=== PATIENT | female | born 1945 | race Caucasian/White ===

== ENCOUNTER 2016-11-15 14:11 | Emergency (ER) | payer MEDICARE ==
[2016-11-15] MEDS ORDERED: ASPIRIN 81 MG TABLET, CHEWABLE PO ONE (15:18)
--- NOTE | 2016-11-15 15:19 | ER Document Report ---
ED Medical Screen (RME) - General Stated Complaint: DIFFICULTY BREATHING Mode of Arrival: Ambulatory Information source: Patient Notes: Patient presents to the emergency department with complaints of chest pressure since Tuesday. She also reports shortness of breath. Denies nausea vomiting diarrhea. Does not have a history of cardiac disease. History of diabetes. I have greeted and performed a rapid initial assessment of this patient. A comprehensive ED assessment and evaluation of the patient, analysis of test results and completion of the medical decision making process will be conducted by additional ED providers. TRAVEL OUTSIDE OF THE [place] IN LAST 30 DAYS: No - Related Data Allergies/Adverse Reactions: adhesive Allergy (Severe, Verified 07/12/13 17:47) BURNING AND RASH codeine [Codeine] Allergy (Severe, Verified 07/12/13 17:47) Nausea Penicillins Allergy (Severe, Verified 07/12/13 17:47) rash Past Medical History - General Information source: Patient - Social History Lives with: Family Family history: CAD, CVA - Past Medical History Cardiac Medical History: Reports: Hx Hypercholesterolemia, Hx Hypertension Denies: Hx Atrial Fibrillation, Hx Congestive Heart Failure, Hx Coronary Artery Disease, Hx Heart Attack, Hx Peripheral Vascular Disease, Hx Pulmonary Embolism, Hx Heart Murmur Pulmonary Medical History: Reports: Hx Bronchitis, Hx COPD, Hx Sleep Apnea Denies: Hx Asthma, Hx Pneumonia, Hx Respiratory Failure, Hx Tuberculosis Neurological Medical History: Denies: Hx Cerebrovascular Accident, Hx Seizures Endocrine Medical History: Reports: Hx Diabetes Mellitus Type 2 - insulin dependent, Hx Hypothyroidism. Denies: Hx Graves' Disease, Hx Hyperthyroidism Renal/ Medical History: Denies: Hx Ovarian Cysts, Hx Pelvic Inflammatory Disease Malignancy Medical History: Reports: Hx Cervical Cancer, Hx Colorectal Cancer. Denies: Hx Breast Cancer, Hx Lung Cancer, Hx Ovarian Cancer GI Medical History: Reports: Hx Gastroesophageal Reflux Disease, Hx Liver Failure. Denies: Hx Crohn's Disease, Hx Hiatal Hernia, Hx Irritable Bowel, Hx Ulcer Musculoskeltal Medical History: Reports Hx Arthritis, Denies Hx Fibromyalgia, Denies Hx Muscular Dystrophy, Reports Hx Muscle Weakness - left leg Psychiatric Medical History: Reports: Hx Depression Traumatic Medical History: Reports: Hx Fractures Infectious Medical History: Denies: Hx MRSA Past Surgical History: Reports: Hx Appendectomy, Hx Bowel Surgery - COLONOSCOPY , COLON POLYP REMOVAL 08/01, Hx Cholecystectomy, Hx Hysterectomy, Hx Orthopedic Surgery - lt. hip replacement, hip surgery x 8 to left hip, Hx Tubal Ligation. Denies: Hx Section, Hx Colostomy, Hx Coronary Artery Bypass Graft, Hx Gastric Bypass Surgery, Hx Herniorrhaphy, Hx Mastectomy, Hx Pacemaker, Hx Tonsillectomy - Immunizations Immunizations up to date: Yes Hx Diphtheria, Pertussis, Tetanus Vaccination: No Physical Exam - Vital signs Vitals: Temp Pulse Resp BP Pulse Ox 97.3 F 68 18 125/66 95 11/15/16 14:19 11/15/16 14:19 11/15/16 14:19 11/15/16 14:19 11/15/16 14:19 Course - Vital Signs Vital signs: Temp Pulse Resp BP Pulse Ox 97.3 F 68 18 125/66 95 11/15/16 14:19 11/15/16 14:19 11/15/16 14:19 11/15/16 14:19 11/15/16 14:19
[2016-11-15 17:13] LABS: ABSOLUTE BASOPHILS # (AUTO) 0.1 10^3/uL (0.0-0.2); ABSOLUTE EOSINOPHILS # (AUTO) 0.2 10^3/uL (0.0-0.6); ABSOLUTE LYMPHOCYTES (AUTO) 3.9 10^3/uL (0.5-4.7); ABSOLUTE MONOCYTES (AUTO) 0.8 10^3/uL (0.1-1.4); ABSOLUTE NEUT (AUTO) 6.4 10^3/uL (1.7-8.2); BASOPHILS % (AUTO) 0.7 % (0-2); EOSINOPHILS % (AUTO) 1.7 % (0-6); HEMATOCRIT 42.2 % (36.0-47.0); HEMOGLOBIN 13.6 g/dL (12.0-15.5); HGB HCT DIFFERENCE -1.4; LYMPHOCYTES % (AUTO) 34.5 % (13-45); MEAN CORPUSCULAR HEMOGLOBIN 25.3 pg (27.0-33.4); MEAN CORPUSCULAR HGB CONC 32.2 g/dL (32.0-36.0); MEAN CORPUSCULAR VOLUME 79 fl (80-97); MONOCYTES % (AUTO) 6.9 % (3-13); RED BLOOD COUNT 5.36 10^6/uL (3.72-5.28); RED CELL DISTRIBUTION WIDTH 16.7 % (11.5-14.0); SEGMENTED NEUTROPHILS % (AUTO) 56.2 % (42-78); WHITE BLOOD COUNT 11.4 10^3/uL (4.0-10.5)
[2016-11-15 17:38] LABS: APPEARANCE,URINE CLEAR; BILIRUBIN,URINE NEGATIVE (NEGATIVE); GLUCOSE, URINE >=500 mg/dL (NEGATIVE); KETONES,URINE NEGATIVE (NEGATIVE); LEUKOCYTE ESTERASE,URINE NEGATIVE (NEGATIVE); NITRITE,URINE NEGATIVE (NEGATIVE); PROTEIN,URINE NEGATIVE (NEGATIVE); URINE SPECIFIC GRAVITY 1.006; UROBILINOGEN,URINE NEGATIVE mg/dL (<2.0)
[2016-11-15 17:39] LABS: ALANINE AMINOTRANSFERASE 27 U/L (9-52); ALBUMIN 4.2 g/dL (3.5-5.0); ALKALINE PHOSPHATASE 78 U/L (38-126); ANION GAP 14 (5-19); ASPARTATE AMINO TRANSFERASE 21 U/L (14-36); BILIRUBIN,DIRECT 0.3 mg/dL (0.0-0.4); BILIRUBIN,TOTAL 0.6 mg/dL (0.2-1.3); BLOOD UREA NITROGEN 20 mg/dL (7-20); CALCIUM 9.5 mg/dL (8.4-10.2); CARBON DIOXIDE 27 mmol/L (22-30); CHLORIDE 101 mmol/L (98-107); CREATINE KINASE 29 U/L (30-135); CREATININE RESULT 0.89 mg/dL (0.52-1.25); GLUCOSE 73 mg/dL (75-110); LIPASE 73.5 U/L (23-300); POTASSIUM 5.3 mmol/L (3.6-5.0); SODIUM 141.8 mmol/L (137-145); TOTAL PROTEIN 7.4 g/dL (6.3-8.2)
[2016-11-15 17:52] LABS: CREATINE KINASE MB < 0.22 ng/mL (<4.55); TROPONIN I < 0.012 ng/mL
--- NOTE | 2016-11-15 18:48 | ER Document Report ---
ED Cardiac - General Chief Complaint: Chest Pressure Stated Complaint: DIFFICULTY BREATHING Time seen by provider: 18:43 Mode of Arrival: Ambulatory Information source: Patient TRAVEL OUTSIDE OF THE [place] IN LAST 30 DAYS: No - HPI Patient complains to provider of: Chest pain, Chest tightness Was the onset of pain: Gradual Is the pain a: New problem Chest pain location: Substernal Quality of pain: Heaviness Severity now: Mild Severity at worst: Moderate Cardiac risk factors: Diabetes, Dyslipidemia Positive cardiac history: No Associated symptoms: None Exacerbated by: Denies Relieved by: Nothing Similar symptoms previously: No Recently seen / treated by doctor: No Notes: Patient is a 70-year-old female with a history of diabetes, COPD, hyperlipidemia , and cervical on colorectal cancer in the past, who presents to the emergency room complaining of chest pressure that been going on for the past 4 days, she reports a heaviness, with shortness of breath but no diaphoresis, states it feels like there is a heavy book sitting on her chest, she reports a mild nonproductive cough, denies a fever, no headache, lightheadedness or dizziness, no nausea, vomiting or diarrhea, no history of similar symptoms previously - Related Data Allergies/Adverse Reactions: adhesive Allergy (Severe, Verified 07/12/13 17:47) BURNING AND RASH codeine [Codeine] Allergy (Severe, Verified 07/12/13 17:47) Nausea Penicillins Allergy (Severe, Verified 07/12/13 17:47) rash Past Medical History - General Information source: Patient - Social History Smoking Status: Former Smoker Frequency of alcohol use: None Drug Abuse: None Lives with: Family Family History: CVA, Hypertension Patient has suicidal ideation: No Patient has homicidal ideation: No - Past Medical History Cardiac Medical History: Reports: Hx Hypercholesterolemia, Hx Hypertension Denies: Hx Atrial Fibrillation, Hx Congestive Heart Failure, Hx Coronary Artery Disease, Hx Heart Attack, Hx Peripheral Vascular Disease, Hx Pulmonary Embolism, Hx Heart Murmur Pulmonary Medical History: Reports: Hx Bronchitis, Hx COPD, Hx Sleep Apnea Denies: Hx Asthma, Hx Pneumonia, Hx Respiratory Failure, Hx Tuberculosis Neurological Medical History: Denies: Hx Cerebrovascular Accident, Hx Seizures Endocrine Medical History: Reports: Hx Diabetes Mellitus Type 2 - insulin dependent, Hx Hypothyroidism. Denies: Hx Graves' Disease, Hx Hyperthyroidism Renal/ Medical History: Denies: Hx Ovarian Cysts, Hx Peritoneal Dialysis, Hx Pelvic Inflammatory Disease Malignancy Medical History: Reports: Hx Cervical Cancer, Hx Colorectal Cancer. Denies: Hx Breast Cancer, Hx Lung Cancer, Hx Ovarian Cancer GI Medical History: Reports: Hx Gastroesophageal Reflux Disease, Hx Liver Failure. Denies: Hx Crohn's Disease, Hx Hiatal Hernia, Hx Irritable Bowel, Hx Ulcer Musculoskeltal Medical History: Reports Hx Arthritis, Denies Hx Fibromyalgia, Denies Hx Muscular Dystrophy, Reports Hx Muscle Weakness - left leg Psychiatric Medical History: Reports: Hx Depression Traumatic Medical History: Reports: Hx Fractures Infectious Medical History: Denies: Hx MRSA Past Surgical History: Reports: Hx Appendectomy, Hx Bowel Surgery - COLONOSCOPY , COLON POLYP REMOVAL 08/01, Hx Cholecystectomy, Hx Hysterectomy, Hx Orthopedic Surgery - lt. hip replacement, hip surgery x 8 to left hip, Hx Tubal Ligation. Denies: Hx Section, Hx Colostomy, Hx Coronary Artery Bypass Graft, Hx Gastric Bypass Surgery, Hx Herniorrhaphy, Hx Mastectomy, Hx Pacemaker, Hx Tonsillectomy - Immunizations Immunizations up to date: Yes Hx Diphtheria, Pertussis, Tetanus Vaccination: No Hx Pneumococcal Vaccination: 05/22/12 Review of Systems - Review of Systems Constitutional: No symptoms reported EENT: No symptoms reported Cardiovascular: See HPI Respiratory: See HPI Gastrointestinal: No symptoms reported Genitourinary: No symptoms reported Female Genitourinary: No symptoms reported Musculoskeletal: No symptoms reported Skin: No symptoms reported Hematologic/Lymphatic: No symptoms reported Neurological/Psychological: No symptoms reported -: Yes All other systems reviewed and negative Physical Exam - Vital signs Vitals: Temp Pulse Resp BP Pulse Ox 97.3 F 68 18 125/66 95 11/15/16 14:19 11/15/16 14:19 11/15/16 14:19 11/15/16 14:19 11/15/16 14:19 Interpretation: Normal - General General appearance: Appears well, Alert - HEENT Head: Normocephalic, Atraumatic Eyes: Normal Pupils: PERRL - Respiratory Respiratory status: No respiratory distress Chest status: Nontender Breath sounds: Normal Chest palpation: Normal - Cardiovascular Rhythm: Regular Heart sounds: Normal auscultation Murmur: No - Abdominal Inspection: Normal Distension: No distension Bowel sounds: Normal Tenderness: Nontender Organomegaly: No organomegaly - Back Back: Normal, Nontender - Extremities General upper extremity: Normal inspection, Nontender, Normal color, Normal ROM , Normal temperature General lower extremity: Normal inspection, Nontender, Normal color, Normal ROM , Normal temperature. No: Jose Cruz's sign - Neurological Neuro grossly intact: Yes Cognition: Normal Orientation: AAOx4 Anna Coma Scale Eye Opening: Spontaneous Anna Coma Scale Verbal: Oriented Anna Coma Scale Motor: Obeys Commands Mchenry Coma Scale Total: 15 Speech: Normal Motor strength normal: LUE, RUE, LLE, RLE Sensory: Normal - Psychological Associated symptoms: Normal affect, Normal mood - Skin Skin Temperature: Warm Skin Moisture: Dry Skin Color: Normal Course - Re-evaluation Re-evalutation: 11/15/16 19:55 Lab and imaging findings were discussed with patient and spouse at bedside, CT is consistent with a 2.2 cm mass in the anterior lingula, patient was given a copy of this report, she was advised to follow-up with an oncologist within the next week, as well as her primary care provider or return if symptoms worsen, patient acknowledges understanding and agreement with this plan - Vital Signs Vital signs: Temp Pulse Resp BP Pulse Ox 97.3 F 68 18 125/66 95 11/15/16 14:19 11/15/16 14:19 11/15/16 14:19 11/15/16 14:19 11/15/16 14:19 - Laboratory Result Diagrams: 11/15/16 17:01 11/15/16 17:01 Laboratory results interpreted by me: 11/15/16 11/15/16 11/15/16 17:01 17:01 17:01 WBC 11.4 H RBC 5.36 H MCV 79 L MCH 25.3 L RDW 16.7 H Potassium 5.3 H Glucose 73 L Creatine Kinase 29 L Urine Glucose (UA) >=500 H - Diagnostic Test Radiology reviewed: Image reviewed, Reports reviewed - EKG Interpretation by Me EKG shows normal: Sinus rhythm Rate: Normal Rhythm: NSR Discharge - Discharge Clinical Impression: Mass of lingula of lung Condition: Stable Disposition: HOME, SELF-CARE Instructions: Growth or Mass, Pending Workup (OM) Additional Instructions: Follow up with your primary care provider and oncologist within the next week. Return to the emergency room immediately if symptoms worsen or any additional concerns. Referrals: HENRRY RODRIGUEZ MD [Primary Care Provider] - Follow up as needed NIDA HERNANDEZ MD [ACTIVE STAFF] - Follow up as needed
[2016-11-15 19:58] VITALS: BP 124/59
--- NOTE | 2016-11-16 00:15 | EKG REPORT ---
SEVERITY:- BORDERLINE ECG - SINUS RHYTHM LEFT AXIS DEVIATION BORDERLINE T ABNORMALITIES, ANTERIOR LEADS : Confirmed by: Kathie Alva 16-Nov-2016 00:14:38
== END 2016-11-15 20:06 | disposition home or self-care (01) ==
LOC: ER 14:11
DX: R91.8 Other nonspecific abnormal finding of lung field (principal); R07.9 Chest pain, unspecified; R05 Cough; E11.9 Type 2 diabetes mellitus without complications; J44.9 Chronic obstructive pulmonary disease, unspecified; E78.5 Hyperlipidemia, unspecified; I10 Essential (primary) hypertension; Z85.41 Personal history of malignant neoplasm of cervix uteri; Z85.038 Personal history of other malignant neoplasm of large intestine; Z88.6 Allergy status to analgesic agent; Z88.0 Allergy status to penicillin; Z79.4 Long term (current) use of insulin; Z90.49 Acquired absence of other specified parts of digestive tract; Z90.710 Acquired absence of both cervix and uterus
CPT/HCPCS: 93005; 99285; 36415; 82553; 82550; 83690; 85025; 80053; 81001; 84484; 71020; 71275; 93010; A9270

== ENCOUNTER → 2016-11-28 | Outpatient (CLI) | payer MEDICARE | LOC: RAD 15:22 | PROVIDERS: ATTEND Specialist | DX: R91.1 Solitary pulmonary nodule (principal) | CPT/HCPCS: 78815; A9552 ==

== ENCOUNTER 2016-12-15 08:38 | Day surgery (SDC) | payer MEDICARE ==
[2016-12-15 10:00] LABS: HEMATOCRIT 39.8 % (36.0-47.0); HEMOGLOBIN 12.8 g/dL (12.0-15.5); HGB HCT DIFFERENCE -1.4; MEAN CORPUSCULAR HEMOGLOBIN 24.9 pg (27.0-33.4); MEAN CORPUSCULAR HGB CONC 32.1 g/dL (32.0-36.0); MEAN CORPUSCULAR VOLUME 78 fl (80-97); RED BLOOD COUNT 5.13 10^6/uL (3.72-5.28); RED CELL DISTRIBUTION WIDTH 15.8 % (11.5-14.0); WHITE BLOOD COUNT 7.1 10^3/uL (4.0-10.5)
[2016-12-15 10:05] LABS: PARTIAL THROMBOPLASTIN TIME 28.7 SEC (23.5-35.8); PROTHROMBIN TIME 13.5 SEC (11.4-15.4)
[2016-12-15 10:16] LABS: BLOOD UREA NITROGEN 23 mg/dL (7-20); CREATININE RESULT 0.91 mg/dL (0.52-1.25); GLUCOSE 126 mg/dL (75-110)
[2016-12-15] MEDS ORDERED: MIDAZOLAM 2 MG/2 ML INJ ONE (11:02)
[2016-12-15] MEDS ORDERED: FENTANYL CITRATE INJ/PF 100 MCG/2 ML AMPUL ONE (11:03)
[2016-12-15] MEDS ORDERED: OXYCODONE HCL IR 5 MG TABLET ONE (12:41)
[2016-12-15 15:54] VITALS: BP 130/61
== END 2016-12-15 15:17 | disposition home or self-care (01) ==
LOC: RAD 08:38
PROVIDERS: ATTEND Internal Medicine
PROC: 0BBL3ZX Excision of Left Lung, Percutaneous Approach, Diagnostic (ICD-10-PCS; principal; 2016-12-15)
DX: C34.2 Malignant neoplasm of middle lobe, bronchus or lung (principal); Z79.01 Long term (current) use of anticoagulants; Z79.899 Other long term (current) drug therapy; Z88.5 Allergy status to narcotic agent; Z88.0 Allergy status to penicillin
CPT/HCPCS: 36415; 84520; 82565; 82947; 85027; 85610; 85730; 88342 ×2; 88341 ×2; 88305 ×2; 88313 ×2; 71010; 32405; J2250; J3010; A9270

== ENCOUNTER → 2016-12-28 | Outpatient (CLI) | payer MEDICARE | LOC: RAD 15:30 | PROVIDERS: ATTEND Internal Medicine | DX: R51 Headache (principal) | CPT/HCPCS: 70553; A9577 ==

== ENCOUNTER 2017-03-23 08:20 | Day surgery (SDC) | payer MEDICARE ==
[2017-03-23 08:59] LABS: HEMATOCRIT 31.6 % (36.0-47.0); HGB HCT DIFFERENCE -1.6; MEAN CORPUSCULAR HGB CONC 31.7 g/dL (32.0-36.0); MEAN CORPUSCULAR VOLUME 73 fl (80-97); RED BLOOD COUNT 4.36 10^6/uL (3.72-5.28); RED CELL DISTRIBUTION WIDTH 16.8 % (11.5-14.0); WHITE BLOOD COUNT 6.9 10^3/uL (4.0-10.5)
[2017-03-23] MEDS ORDERED: PROPOFOL INJ 200 MG/20 ML VIAL IV ONE (11:51)
[2017-03-23] MEDS ORDERED: FENTANYL CITRATE INJ/PF 100 MCG/2 ML AMPUL ONE (11:51)
[2017-03-23] MEDS ORDERED: MIDAZOLAM 2 MG/2 ML INJ ONE (11:51)
[2017-03-23] MEDS ORDERED: LIDOCAINE 0.5%/EPINEPHRINE INJ 50 ML VIAL ONE (11:59)
[2017-03-23] MEDS ORDERED: CIPROFLOXACIN 400 MG/D5W RTU 400 MG/200 ML RTUPB IV ONE (12:08)
[2017-03-23] MEDS ORDERED: FENTANYL CITRATE INJ/PF 100 MCG/2 ML AMPUL IV PRN ×3 (12:45)
[2017-03-23] MEDS ORDERED: DIPHENHYDRAMINE HCL 50 MG/ML VIAL IV PRN (12:45)
--- NOTE | 2017-03-23 12:53 | Operative Report ---
Operative Report DATE OF SURGERY: 03/23/17 PREOPERATIVE DIAGNOSIS: Left lung carcinoma POSTOPERATIVE DIAGNOSIS: Same OPERATION: 1. Focused ultrasound of the right neck. 2.ultrasound directed insertion of single-lumen [id number] catheter. . Interpretation of intraoperative fluoroscopy SURGEON: REYNOLD ALEXANDER 1ST [employer]CORN ATTENDANT: INGRIS LE ANESTHESIA: LMAC TISSUE REMOVED OR ALTERED: None COMPLICATIONS: None ESTIMATED BLOOD LOSS: Scant INTRAOPERATIVE FINDINGS: See below PROCEDURE: Patient was seen in the preop holding area, right neck marked, taken the operating room where LMAC anesthesia was induced. Arms were tucked at her sides. The right neck and chest wall prepped and draped in sterile fashion. Surgical plan and surgical timeout. The right neck was scanned with a variable frequency linear transducer. The right internal jugular vein was felt suitable for cannulation. Skin was any stopped 1% lidocaine plain. Using micro needle and wire, the wire was threaded into the right internal jugular vein without difficulty. Suitable site for placement of the right subclavian port was chosen. Skin was any stopped 1% lidocaine plain. A 3 cm incision was made over the intended for port placement. The underlying subcutaneous tissue was opened with electrocautery and blunt dissection. The port was then tucked into position, catheter tunneled between the 2 wounds trimmed to the appropriate length, and attached to the port with the plastic ring. The micro needle was then threaded over a small introducer sheath to a conventional 0.030 inch wire. We now threaded on top of the conventional wire, a 8 Urdu dilator introducer sheath. Wire and dilator removed, catheter threaded into the internal jugular vein all under fluoroscopic guidance and away sheath removed leaving the catheter in good position. There is no kinking of the catheter at the neck. There was no evidence of ectopy. There was excellent aspiration of blood flow through the catheter. Catheter was flushed with heparinized saline, dilute, hemostasis achieved, and wounds closed with 3- 0 Vicryl benzoin and Steri-Strips Portable upright chest x-ray pending at time of dictation. Patient tolerated the procedure well , recovery in stable condition. The physician orthodontic technician assistant, Ms. Antonio, provided assistance during this case by: Assisting , retracting tissue, instillation of local anesthesia and closure of skin incisions.
--- NOTE | 2017-03-23 12:55 | PDOC DISCHARGE SUMMARY ---
Discharge Summary (SDC) - Discharge Final Diagnosis: Lung carcinoma Date of Surgery: 03/23/17 Discharge Date: 03/23/17 Condition: Good Treatment or Instructions: [facility] [address] [place] [id number] Discharge Instructions: Neck Surgery 1. General Information: a. Do not drive a car or operate machinery for 1-2 weeks or as long as taking narcotics for pain. b. Do not consume alcohol, tranquilizers, sleeping medications or any non- prescribed medications for 24 hours unless approved by your doctor or as long as taking pain medication. c. Do not make important decisions or sign any important papers for the first 24 hours after surgery. d. When discharged home the same day of surgery have a responsible person with you for the first night. 2. Activity Restrictions: 2 weeks. a. Avoid heavy lifting > 10 lbs, straining, sports, mowing lawn, shoveling snow, vacuum cleaning and bending over a lot. Limit bending to taking a shower and getting dressed. Sleep with head elevated (2 pillows). b. Walking is important to avoid blood clots in the legs and deep breathing can prevent pneumonia. c. It is fine to go up and down steps, ride in a car, and use a stationary bike with low resistance. 3. Treatment: a. The dressing can be removed the day after surgery and to shower then daily is fine, but you should not bathe in the tub or go swimming for 2 weeks. The paper strips (steri-strips) on the skin will fall off and can get wet with a shower, just pat them dry. The sutures dissolve and the strips will be removed in the office on your follow up visit if they have not fallen off by then. May shower 24 hours after surgery; if your incision was glued you may wash your neck and expect glue to fall off in about 2 weeks. b. Do not use oils, powders or lotion on your incision until after the first postoperative visit. Then you may begin to apply daily to the incision a cream of your choice (Vitamin E, cocoa butter, scar creams) to help soften the scar. c. If you are fair skinned it would be ford to use sunscreen on the scar for the first 6 months or keep it covered to avoid tanning pigment deposits being trapped in the scar creating a dark line instead of a pink scar. 4. Medications: a. b. Stop the narcotic when able since you cannot take and drive and they may cause constipation. You may switch to plain Tylenol, Advil or Aleve as you transition from the narcotic. Many adults find good pain relief with Ibuprofen 600-800 mg three times a day with meals to work well to avoid narcotic use. High doses of Ibuprofen should only be used for short courses since it can cause indigestion, ulcer bleeding in the stomach and harm kidney function. c. You should resume all normal medications unless a change is specified by your doctors. d. a. If going home same day of surgery you should begin with clear liquids and if do well then advance to a normal diet with foods low in fat and protein. Small portion sizes may be ford the first night to lessen risk of vomiting. b. When discharged after a hospital stay you may resume a normal diet. 6. Notify Physician If: a. Worsening of pain or swelling in neck, persistent bleeding at the operative site, nausea and vomiting, fever above 101, unable to urinate and bladder pressure after 8-12 hours, increased redness, drainage, or foul smelling discharge from the incision. b. If you have difficulty breathing or chest pain, call an ambulance and/or go to the Emergency Room. 7. Follow Up Care: a. Schedule a follow up appointment with your doctor for 2 weeks. In the event of any postoperative problems or questions or you may call the office during business hours or the On-Call physician evenings and weekends at [facility]. [facility] 8. I understand the instructions for my postoperative care as described above and a copy has been given to me. Patient/Significant Other Witness Date Prescriptions: Ketorolac Tromethamine [Toradol 10 mg Tablet] 10 mg PO Q6HP PRN #14 tablet PRN Reason: Discharge Diet: As Tolerated Discharge Activity: Activity As Tolerated Home Care Assistance: None Needed Report the Following to Your Physician Immediately: Shortness of Breath, Increase in Pain, Fever over 101 Degrees
--- NOTE | 2017-03-23 13:43 | RADIOLOGY REPORT (SQ) ---
EXAM DESCRIPTION: CHEST SINGLE VIEW COMPLETED DATE/TIME: 03/23/2017 1:28 pm REASON FOR STUDY: sp port COMPARISON: None. EXAM PARAMETERS: NUMBER OF VIEWS: One view. TECHNIQUE: Single frontal radiographic view of the chest acquired. RADIATION DOSE: NA LIMITATIONS: None. FINDINGS: LUNGS AND PLEURA: No opacities, masses or pneumothorax. No pleural effusion. MEDIASTINUM AND HILAR STRUCTURES: No masses. Contour normal. HEART AND VASCULAR STRUCTURES: Cardiomegaly. BONES: No acute findings. HARDWARE: Right IJ port noted. Significant redundancy seen within the looped in the neck crescent po ssible occlusion of catheter is appears to be change due did state PACs. Catheter tip is noted to be in the mid SVC. Surgical clips project over the left chest. OTHER: No other significant finding. IMPRESSION: Cardiomegaly. Right IJ port noted. There appears to be a significant band at the apex of the catheter question possible occlusion of the catheter. Tip noted in the in the mid SVC. TECHNICAL DOCUMENTATION: JOB ID: [id number]
--- NOTE | 2017-03-23 13:45 | RADIOLOGY REPORT (SQ) ---
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 FLUOROSCOPY TIME: 0 minutes 4 images saved to PACS. TECHNIQUE: Intra-operative images acquired during surgical procedure to evaluate progress. NUMBER OF IMAGES: 4 spot fluoroscopic images LIMITATIONS: None. FINDINGS: 4 spot fluoroscopic images from placement of right IJ ported catheter. Right chest port n oted with catheter entering right IJ with the tip in the mid SVC. Please see operative report full d etails regarding procedure. IMPRESSION: IMAGE(S) OBTAINED DURING PROCEDURE. COMMENT: Quality ID [id number]: Final reports for procedures using fluoroscopy that document radiation exp osure indices, or exposure time and number of fluorographic images (if radiation exposure indices are not available) Please consult full operative report of the attending physician for description of the procedure. TECHNICAL DOCUMENTATION: JOB ID: [id number] [employer]- All Rights Reserved
[2017-03-23] MEDS ORDERED: ONDANSETRON HCL INJ/PF 4 MG/2 ML SDV ONE (14:22)
[2017-03-23 15:05] VITALS: BP 120/49
== END 2017-03-23 14:35 | disposition home or self-care (01) ==
LOC: OROUT 08:20
PROVIDERS: ATTEND Surgery
PROC: 05HM33Z Insertion of Infusion Device into Right Internal Jugular Vein, Percutaneous Approach (ICD-10-PCS; principal; 2017-03-23 11:15)
DX: C34.92 Malignant neoplasm of unspecified part of left bronchus or lung (principal); C34.12 Malignant neoplasm of upper lobe, left bronchus or lung; R91.1 Solitary pulmonary nodule; E11.9 Type 2 diabetes mellitus without complications; J43.9 Emphysema, unspecified; K21.9 Gastro-esophageal reflux disease without esophagitis; E78.00 Pure hypercholesterolemia, unspecified; E89.0 Postprocedural hypothyroidism; Z96.642 Presence of left artificial hip joint; Z88.0 Allergy status to penicillin; Z85.850 Personal history of malignant neoplasm of thyroid; Z85.41 Personal history of malignant neoplasm of cervix uteri; Z79.899 Other long term (current) drug therapy; Z79.84 Long term (current) use of oral hypoglycemic drugs; Z79.51 Long term (current) use of inhaled steroids; Z88.5 Allergy status to narcotic agent; Z90.49 Acquired absence of other specified parts of digestive tract; Z87.891 Personal history of nicotine dependence
CPT/HCPCS: 36415; 82962; 85027; 71010; 77001; 36561; C1752; C1788; J2250; J3010; J3490; J2405; J2704; J0744; J1642; 532

== ENCOUNTER 2017-05-21 19:09 | Inpatient (IN) | payer MEDICARE ==
[2017-05-21] MEDS ORDERED: RINGERS SOLUTION,LACTATED 1,000 ML IV ONE ×2 (19:41→22:51)
[2017-05-21] MEDS ORDERED: METOCLOPRAMIDE HCL INJ/PF 10 MG/2 ML SDV IV ONE (19:41)
--- NOTE | 2017-05-21 19:43 | ER Document Report ---
ED General - General Stated Complaint: NAUSEA/VOMITTING Time Seen by Provider: 05/21/17 19:18 Notes: Patient is a 71-year-old female with a past medical history of lung cancer status post lobectomy on the left, currently on chemotherapy last dose was 2 weeks ago who presents with 2 weeks of persistent vomiting and inability to tolerate oral intake. Patient states that her symptoms started after receiving her last dose of chemotherapy but have been persistent since that time. She has seen her oncologist as an outpatient on 3 separate occasions this week to receive IV fluids and IV antiemetics for her symptoms. She states that this typically improves her symptoms for several hours after administration of these medications but then her symptoms return. She has been unable to tolerate oral fluids for the past 3 days without vomiting. She has had similar episodes with receiving chemotherapy in the past but they have never lasted for this long or been to this degree of severity. She notes an intermittent abdominal cramping typically around times of vomiting but denies any abdominal pain at this time. She has not noted that anything seems to trigger or worsen her symptoms. She has not had any fever or constitutional symptoms. She has had several diarrheal bowel movements but knows she has not had a bowel movement in the past 24 hours. TRAVEL OUTSIDE OF THE [place] IN LAST 30 DAYS: No - Related Data Allergies/Adverse Reactions: adhesive Allergy (Severe, Verified 12/15/16 09:31) BURNING AND RASH codeine [Codeine] Allergy (Severe, Verified 12/15/16 09:31) Nausea Penicillins Allergy (Severe, Verified 12/15/16 09:31) rash metal Allergy (Uncoded 12/14/16 18:47) skin peels Past Medical History - General Information source: Patient - Social History Smoking Status: Former Smoker Frequency of alcohol use: None Drug Abuse: None Lives with: Spouse/Significant other Family History: CVA, Hypertension - Past Medical History Cardiac Medical History: Reports: Hx Hypercholesterolemia, Hx Hypertension - states "doesn't have high BP, on meds because of diabetes" Denies: Hx Atrial Fibrillation, Hx Congestive Heart Failure, Hx Coronary Artery Disease, Hx Heart Attack, Hx Peripheral Vascular Disease, Hx Pulmonary Embolism, Hx Heart Murmur Pulmonary Medical History: Reports: Hx Bronchitis, Hx COPD, Hx Sleep Apnea Denies: Hx Asthma, Hx Pneumonia, Hx Respiratory Failure, Hx Tuberculosis Neurological Medical History: Denies: Hx Cerebrovascular Accident, Hx Seizures Endocrine Medical History: Reports: Hx Diabetes Mellitus Type 2 - insulin dependent, Hx Hypothyroidism. Denies: Hx Graves' Disease, Hx Hyperthyroidism Renal/ Medical History: Denies: Hx Ovarian Cysts, Hx Peritoneal Dialysis, Hx Pelvic Inflammatory Disease Malignancy Medical History: Reports: Hx Cervical Cancer, Hx Colorectal Cancer. Denies: Hx Breast Cancer, Hx Lung Cancer, Hx Ovarian Cancer GI Medical History: Reports: Hx Gastroesophageal Reflux Disease, Hx Liver Failure. Denies: Hx Crohn's Disease, Hx Hiatal Hernia, Hx Irritable Bowel, Hx Ulcer Musculoskeltal Medical History: Reports Hx Arthritis, Denies Hx Fibromyalgia, Denies Hx Muscular Dystrophy, Reports Hx Muscle Weakness - left leg Psychiatric Medical History: Reports: Hx Depression Traumatic Medical History: Reports: Hx Fractures Infectious Medical History: Denies: Hx MRSA Past Surgical History: Reports: Hx Appendectomy, Hx Bowel Surgery - COLONOSCOPY , COLON POLYP REMOVAL 08/01, Hx Cholecystectomy, Hx Hysterectomy, Hx Orthopedic Surgery - lt. hip replacement, hip surgery x 8 to left hip, Hx Tubal Ligation. Denies: Hx Section, Hx Colostomy, Hx Coronary Artery Bypass Graft, Hx Gastric Bypass Surgery, Hx Herniorrhaphy, Hx Mastectomy, Hx Pacemaker, Hx Tonsillectomy - Immunizations Immunizations up to date: Yes Hx Diphtheria, Pertussis, Tetanus Vaccination: Yes Hx Pneumococcal Vaccination: 05/22/15 Review of Systems - Review of Systems Notes: Constitutional: Negative for fever. HENT: Negative for sore throat. Eyes: Negative for visual changes. Cardiovascular: Negative for chest pain. Respiratory: Negative for shortness of breath. Gastrointestinal: Positive for vomiting Genitourinary: Negative for dysuria. Musculoskeletal: Negative for back pain. Skin: Negative for rash. Neurological: Negative for headaches, weakness or numbness. 10 point ROS negative except as marked above and in HPI. Physical Exam - Vital signs Vitals: Temp Pulse Resp BP Pulse Ox 98.2 F 77 16 124/53 L 98 05/21/17 19:18 05/21/17 19:18 05/21/17 19:18 05/21/17 19:18 05/21/17 19:18 Interpretation: Normal Notes: PHYSICAL EXAMINATION: GENERAL: Well-appearing, well-nourished and in no acute distress. HEAD: Atraumatic, normocephalic. EYES: Pupils equal round and reactive to light, extraocular movements intact, sclera anicteric, conjunctiva are normal. ENT: nares patent, oropharynx clear without exudates. Moderately dry mucous membranes. NECK: Normal range of motion, supple without lymphadenopathy LUNGS: Breath sounds clear to auscultation bilaterally and equal. No wheezes rales or rhonchi. HEART: Regular rate and rhythm without murmurs ABDOMEN: Soft, nontender, normoactive bowel sounds. No guarding, no rebound. No masses appreciated. EXTREMITIES: Normal range of motion, no pitting or edema. No cyanosis. NEUROLOGICAL: No focal neurological deficits. Moves all extremities spontaneously and on command. PSYCH: Normal mood, normal affect. SKIN: Warm, Dry, normal turgor, no rashes or lesions noted. Course - Re-evaluation Re-evalutation: 05/21/17 19:41 Patient presents with 2 weeks of persistent vomiting and difficulty tolerating oral intake after receiving chemotherapy. She has been seen by her oncologist and had IV fluid infusions this week but states that her vomiting got to the point tonight where she felt she should be seen in the emergency department. On examination patient is cheerful, laughing and joking with me. She appears in no distress. Does seem somewhat dehydrated. Vitals are otherwise within normal limits at assessment time. She does not have any focal abdominal tenderness on examination. She has a remote history of a cholecystectomy. She has no focal epigastric abdominal tenderness to suggest an acute pancreatitis. No lower abdominal tenderness to suggest an acute appendicitis. Will obtain a KUB to further evaluate for possible bowel obstruction for which I have an overall low clinical suspicion. She denies any chest pain or shortness of breath to suggest an atypical presentation of ACS. Will obtain basic labs, provide antiemetics, IV fluids and reassess. 05/21/17 22:51 CT scan was obtained after KUB demonstrated findings concerning for possible bowel obstruction. CT does reveal findings consistent with an acute ileus and this is consistent with patient's clinical history. Patient does overall feel better at this time and has not had any further vomiting. However she states that this is frequently the case after she receives IV fluids and antiemetics as she has in the clinic. I think based on patient's failure of outpatient management even using extensive resources as an outpatient including multiple visits to the [facility]mo-clinic, she should be admitted to the hospital for IV fluids , IV antiemetics, gradual return to normal diet. Will contact Dr. Deleon for admission. - Vital Signs Vital signs: Temp Pulse Resp BP Pulse Ox 98.6 F 73 17 138/49 H 100 05/22/17 01:52 05/22/17 02:40 05/22/17 01:52 05/22/17 01:52 05/22/17 01:52 - Laboratory Result Diagrams: 05/21/17 21:25 05/21/17 20:10 Laboratory results interpreted by me: 05/21/17 05/21/17 20:10 21:25 Hgb 9.8 L Hct 29.6 L MCV 76 L MCH 25.2 L RDW 28.6 H Plt Count 82 L Potassium 3.5 L Est GFR (Non-Af Amer) 56 L Glucose 128 H Calcium 7.9 L - Diagnostic Test Radiology reviewed: Reports reviewed Discharge - Discharge Clinical Impression: Ileus, Persistent vomiting, Dehydration Condition: Fair Disposition: ADMITTED OBSERVATION Admitting Provider: Flako Deleon Unit Admitted: Telemetry
[2017-05-21 20:36] LABS: ALANINE AMINOTRANSFERASE 32 U/L (9-52); ALBUMIN 3.9 g/dL (3.5-5.0); ALKALINE PHOSPHATASE 99 U/L (38-126); ANION GAP 10 (5-19); ASPARTATE AMINO TRANSFERASE 24 U/L (14-36); BILIRUBIN,DIRECT 0.4 mg/dL (0.0-0.4); BILIRUBIN,TOTAL 0.8 mg/dL (0.2-1.3); BLOOD UREA NITROGEN 14 mg/dL (7-20); CALCIUM 7.9 mg/dL (8.4-10.2); CARBON DIOXIDE 30 mmol/L (22-30); CHLORIDE 102 mmol/L (98-107); CREATININE RESULT 0.99 mg/dL (0.52-1.25); GLUCOSE 128 mg/dL (75-110); POTASSIUM 3.5 mmol/L (3.6-5.0); SODIUM 141.7 mmol/L (137-145)
--- NOTE | 2017-05-21 20:56 | RADIOLOGY REPORT (SQ) ---
EXAM DESCRIPTION: KUB/ABDOMEN (SINGLE VIEW) COMPLETED DATE/TIME: 05/21/2017 8:32 pm REASON FOR STUDY: vomiting, eval obstruction COMPARISON: 09/20/2011 NUMBER OF VIEWS: One view. TECHNIQUE: Supine radiographic image of the abdomen acquired. LIMITATIONS: None. FINDINGS: BOWEL GAS PATTERN: Multiple air-filled loops of small bowel are seen, measuring up to 5 cm . Gas is seen distally to the level of the rectal vault. CALCIFICATIONS: No suspicious calcifications. SOFT TISSUES: No gross mass or suggestion of organomegaly. HARDWARE: Scattered surgical clips are seen throughout the right surekha abdomen. BONES: Postsurgical changes are seen of the left hip, partially imaged. OTHER: No other significant finding. IMPRESSION: Constellation of findings consistent with developing small bowel obstruction. TECHNICAL DOCUMENTATION: JOB ID: [id number] [employer]- All Rights Reserved
[2017-05-21 21:48] LABS: ABSOLUTE EOSINOPHILS # (AUTO) 0.1 10^3/uL (0.0-0.6); ABSOLUTE LYMPHOCYTES (AUTO) 1.8 10^3/uL (0.5-4.7); ABSOLUTE MONOCYTES (AUTO) 0.5 10^3/uL (0.1-1.4); ABSOLUTE NEUT (AUTO) 4.5 10^3/uL (1.7-8.2); BASOPHILS % (AUTO) 0.3 % (0-2); EOSINOPHILS % (AUTO) 1.2 % (0-6); HEMATOCRIT 29.6 % (36.0-47.0); HEMOGLOBIN 9.8 g/dL (12.0-15.5); HGB HCT DIFFERENCE -0.2; LYMPHOCYTES % (AUTO) 25.7 % (13-45); MEAN CORPUSCULAR HEMOGLOBIN 25.2 pg (27.0-33.4); MEAN CORPUSCULAR VOLUME 76 fl (80-97); MONOCYTES % (AUTO) 7.6 % (3-13); RED BLOOD COUNT 3.88 10^6/uL (3.72-5.28); RED CELL DISTRIBUTION WIDTH 28.6 % (11.5-14.0); SEGMENTED NEUTROPHILS % (AUTO) 65.2 % (42-78); WHITE BLOOD COUNT 6.9 10^3/uL (4.0-10.5)
[2017-05-21 21:53] LABS: MICROCYTOSIS SLIGHT
[2017-05-21 21:58] LABS: ANISOCYTOSIS 4+
[2017-05-21 21:59] LABS: HYPOCHROMASIA SLIGHT; OVALOCYTES SLIGHT; POIKILOCYTOSIS SLIGHT; POLYCHROMASIA SLIGHT; TEAR DROP CELLS SLIGHT
[2017-05-21 22:01] LABS: TOXIC GRANULATION 1+
--- NOTE | 2017-05-21 22:28 | RADIOLOGY REPORT (SQ) ---
EXAM DESCRIPTION: CT ABD/PELVIS WITH IV ONLY COMPLETED DATE/TIME: 05/21/2017 10:06 pm REASON FOR STUDY: poss sbo COMPARISON: Radiographs 05/21/2017 TECHNIQUE: CT scan of the abdomen and pelvis performed using helical scanning technique with dynamic intravenous contrast injection. No oral contrast. Images reviewed with lung, soft tissue, and bone windows. Reconstructed coronal and sagittal MPR images reviewed. Delayed images for evaluation of the urinary system also acquired. All images stored on PACS. All CT scanners at this facility use dose modulation, iterative reconstruction, and/or weight based d osing when appropriate to reduce radiation dose to as low as reasonably achievable (ALARA). [facility]: Dose Right [facility]: CareDose [facility]: Dose Right [facility]: Teradose 4D [facility]: [facility] CONTRAST TYPE AND DOSE: contrast/concentration: Isovue 370.00 mg/ml; Total Contrast Delivered: 85.0 ml; Total Saline Delivered: 70.0 ml RENAL FUNCTION: BUN 14; creatinine 0.99 RADIATION DOSE: Up-to-date CT equipment and radiation dose reduction techniques were employed. CTDIv ol: 16.5 - 20.5 mGy. DLP: 1890 mGy-cm.. LIMITATIONS: Left surekha pelvis surgical hardware confers significant beam hardening artifact, limitin g evaluation of the adjacent soft tissues. FINDINGS: LOWER CHEST: No significant findings. No nodules or infiltrates. Incidental note is made of lingular scarring. LIVER: Normal size. No masses. No dilated ducts. SPLEEN: Normal size. No focal lesions. PANCREAS: No masses. No significant calcifications. No adjacent inflammation or peripancreatic fluid collections. Pancreatic duct not dilated. GALLBLADDER: Surgically absent. ADRENAL GLANDS: No significant masses or asymmetry. RIGHT KIDNEY AND URETER: No solid masses. No significant calcifications. No hydronephrosis or hyd roureter. LEFT KIDNEY AND URETER: No solid masses. No significant calcifications. No hydronephrosis or hydr oureter. AORTA AND VESSELS: No aneurysm. No dissection. Renal arteries, SMA, celiac without stenosis. RETROPERITONEUM: No retroperitoneal adenopathy, hemorrhage or masses. BOWEL AND PERITONEAL CAVITY: The small bowel is dilated and gas/fluid filled from the level of the du odenum to the ileum within the right hemipelvis, where it tapers to normal without evidence of volvul us or mechanical obstruction. The bowel anastomosis appears to be intact, and is not involved with t he above findings. Fluid is seen within the rectal vault. APPENDIX: Surgically absent. PELVIS: No mass. No free fluid. Normal bladder. ABDOMINAL WALL: No masses. No hernias. BONES: No significant or acute findings. OTHER: No other significant finding. IMPRESSION: Status post hemicolectomy with intact anastomosis. Gas and fluid-filled small bowel wit hout evidence of mechanical obstruction or mass. TECHNICAL DOCUMENTATION: JOB ID: [id number] Quality ID # [id number]: Final reports with documentation of one or more dose reduction techniques (e.g., Au tomated exposure control, adjustment of the mA and/or kV according to patient size, use of iterative reconstruction technique) 2010 [email or web address]- All Rights Reserved
[2017-05-21] MEDS ORDERED: ALBUTEROL SULFATE HFA (90 MCG/PUFF) 200 PUFF/8.5 GM MDI IH PRN (23:04)
[2017-05-21] MEDS ORDERED: OXYCODONE HCL IR 5 MG TABLET PO PRN (23:04)
[2017-05-21] MEDS ORDERED: DEXTROSE 50%-WATER 25 GM/50 ML DISP.SYRIN IV PRN ×2 (23:05)
[2017-05-21] MEDS ORDERED: ONDANSETRON HCL INJ/PF 4 MG/2 ML SDV IV PRN (23:05)
[2017-05-21] MEDS ORDERED: GLUCAGON,HUMAN RECOMB 1 MG INJ IM PRN (23:05)
[2017-05-21] MEDS ORDERED: INSULIN LISPRO 100 UNIT/ML 3 ML VIAL SUBCUT PRN (23:05)
[2017-05-21] MEDS ORDERED: DEXTROSE 40% GEL 15 GM TUBE PO PRN ×2 (23:05)
[2017-05-21] MEDS ORDERED: TEMAZEPAM 15 MG CAPSULE PO ONE (23:30)
[2017-05-21 23:32] LABS: ADD ON TESTING BLD IN LAB ACKNOWLEDGE
[2017-05-21 23:42] LABS: MAGNESIUM 1.7 mg/dL (1.6-2.3)
[2017-05-22] MEDS ORDERED: MAGNESIUM SULFATE/D5W 1 GM/100 ML RTUPB IV ONE (00:23)
[2017-05-22] MEDS: NORMAL SALINE 1000 ML 1,000 ML IV SCH ×2 (02:14→08:38)
[2017-05-22] MEDS: HEPARIN SOD (PORCINE) 5,000 UNIT/ML 1 ML SYRINGE SUBCUT SCH ×3 (04:17→21:06)
[2017-05-22 04:49] LABS: ABSOLUTE EOSINOPHILS # (AUTO) 0.1 10^3/uL (0.0-0.6); ABSOLUTE LYMPHOCYTES (AUTO) 1.3 10^3/uL (0.5-4.7); ABSOLUTE MONOCYTES (AUTO) 0.4 10^3/uL (0.1-1.4); ABSOLUTE NEUT (AUTO) 3.3 10^3/uL (1.7-8.2); BASOPHILS % (AUTO) 0.2 % (0-2); EOSINOPHILS % (AUTO) 1.3 % (0-6); HGB HCT DIFFERENCE 0.7; LYMPHOCYTES % (AUTO) 25.6 % (13-45); MEAN CORPUSCULAR HGB CONC 34.3 g/dL (32.0-36.0); MEAN CORPUSCULAR VOLUME 76 fl (80-97); MONOCYTES % (AUTO) 7.7 % (3-13); RED BLOOD COUNT 3.03 10^6/uL (3.72-5.28); RED CELL DISTRIBUTION WIDTH 28.6 % (11.5-14.0); SEGMENTED NEUTROPHILS % (AUTO) 65.2 % (42-78); WHITE BLOOD COUNT 5.1 10^3/uL (4.0-10.5)
[2017-05-22 05:07] LABS: ALANINE AMINOTRANSFERASE 27 U/L (9-52); ALBUMIN 2.8 g/dL (3.5-5.0); ALKALINE PHOSPHATASE 77 U/L (38-126); ANION GAP 6 (5-19); ASPARTATE AMINO TRANSFERASE 16 U/L (14-36); BILIRUBIN,DIRECT 0.3 mg/dL (0.0-0.4); BILIRUBIN,TOTAL 0.5 mg/dL (0.2-1.3); BLOOD UREA NITROGEN 11 mg/dL (7-20); CALCIUM 7.1 mg/dL (8.4-10.2); CARBON DIOXIDE 27 mmol/L (22-30); CHLORIDE 104 mmol/L (98-107); GLUCOSE 104 mg/dL (75-110); SODIUM 137.1 mmol/L (137-145); TOTAL PROTEIN 5.4 g/dL (6.3-8.2)
[2017-05-22 05:47] LABS: ANISOCYTOSIS 4+; HYPOCHROMASIA SLIGHT; MICROCYTOSIS SLIGHT; OVALOCYTES SLIGHT; POIKILOCYTOSIS SLIGHT; POLYCHROMASIA SLIGHT; TARGET CELLS SLIGHT; TEAR DROP CELLS SLIGHT; TOXIC GRANULATION 1+
--- NOTE | 2017-05-22 05:47 | PDOC H&P ---
History of Present Illness Admission Date/PCP: 05/21/17 23:05 Patient complains of: Nausea and vomiting History of Present Illness: ANKUR BURNETT is a 71 year old female with a past medical history of lung cancer status post left-sided lobectomy 4 weeks ago and receiving chemotherapy last dose 2 weeks ago with unknown agent who is had persistent nausea and vomiting over the last 7 days and intolerant of p.o. intake. This week she has received several IV fluid infusions at her oncologist office, she presents with nausea vomiting and abdominal distention. Workup reveals anemia, thrombocytopenia and ileus by CT abdomen and pelvis. Denying chest pain palpitations or shortness of breath. She started on IV fluid hydration, symptomatic management and referred to the hospitalist for admission. Past Medical History Cardiac Medical History: Reports: Hyperlipidema, Hypertension - states "doesn't have high BP, on meds because of diabetes" Denies: Atrial Fibrillation, Congestive Heart Failure, Coronary Artery Disease, Myocardial Infarction, Peripheral Vascular Disease, Pulmonary Embolism , Heart Murmur Pulmonary Medical History: Reports: Bronchitis, Chronic Obstructive Pulmonary Disease (COPD), Sleep Apnea Denies: Asthma, Pneumonia, Respiratory Failure, Tuberculosis Neurological Medical History: Denies: Seizures Endocrine Medical History: Reports: Diabetes Mellitus Type 2 - insulin dependent , Hypothyroidism Denies: Hyperthyroidism Malignancy Medical History: Reports: Cervical Cancer, Colorectal Cancer Denies: Breast Cancer, Lung Cancer, Ovarian Cancer GI Medical History: Reports: Gastroesophageal Reflux Disease Denies: Crohn's Disease, Hiatal Hernia Musculoskeltal Medical History: Reports: Arthritis Denies: Fibromyalgia Psychiatric Medical History: Reports: Depression Hematology: Denies: Anemia Infectious Medical History: Denies: Methicillin-Resistant Staph Aureus Past Surgical History Past Surgical History: Reports: Appendectomy, Cholecystectomy, Hysterectomy, Orthopedic Surgery - lt. hip replacement, hip surgery x 8 to left hip, Tubal Ligation Denies: Amputation, Section, Colostomy, Coronary Artery Bypass Graft , Gastric Bypass Surgery, Herniorrhaphy, Mastectomy, Pacemaker, Tonsillectomy Social History Information Source: Patient, Emergency Med Personnel Lives with: Spouse/Significant other Smoking Status: Former Smoker Frequency of Alcohol Use: None Hx Recreational Drug Use: No Drugs: None Hx Prescription Drug Abuse: No - Advance Directive Resuscitation Status: Full Code Family History Family History: CVA, Hypertension Parental Family History Reviewed: Yes Children Family History Reviewed: Yes Sibling(s) Family History Reviewed.: Yes Medication/Allergy Home Medications: Ipratropium/Albuterol Sulfate [Combivent Inhaler] 2 puff IH DAILY 09/30/12 Omeprazole [Prilosec 40 mg Capsule] 40 mg PO BID 09/30/12 Temazepam 30 mg PO QHS 09/30/12 Levothyroxine Sodium [Synthroid 0.025 mg Tablet] 150 mcg PO DAILY 06/01/13 Atorvastatin Calcium [Lipitor 20 mg Tablet] 20 mg PO QHS 06/14/15 Canagliflozin [Invokana] 1 tab PO DAILY 06/14/15 Insulin Detemir [Levemir Flextouch] 30 unit SQ BID 06/14/15 Metformin HCl 500 mg PO BID 06/14/15 Albuterol Sulfate [Proair HFA Inhalation Aerosol 8.5 gm MDI] 2 puff IH PRN PRN 12/14/16 Oxycodone HCl 5 mg PO ASDIR PRN 12/14/16 Pregabalin [Lyrica 100 Mg Capsule] 150 mg PO ASDIR 12/14/16 Quality Choice Stool Softener 1 tab PO QHS 12/14/16 Sertraline HCl [Zoloft 50 mg Tablet] 1 tab PO DAILY 12/14/16 Valsartan 160 mg PO DAILY 12/14/16 Ketorolac Tromethamine [Toradol 10 mg Tablet] 10 mg PO Q6HP PRN #14 tablet 03/23 Allergies/Adverse Reactions: adhesive Allergy (Severe, Verified 12/15/16 09:31) BURNING AND RASH codeine [Codeine] Allergy (Severe, Verified 12/15/16 09:31) Nausea Penicillins Allergy (Severe, Verified 12/15/16 09:31) rash metal Allergy (Uncoded 12/14/16 18:47) skin peels Review of Systems Constitutional: PRESENT: anorexia, fatigue Eyes: ABSENT: visual disturbances Ears: ABSENT: hearing changes Cardiovascular: ABSENT: chest pain, dyspnea on exertion, edema, orthropnea, palpitations Respiratory: ABSENT: cough, hemoptysis Gastrointestinal: PRESENT: abdominal pain, bloating, nausea, vomiting. ABSENT: coffee ground emesis, constipation, diarrhea Genitourinary: ABSENT: dysuria, hematuria Musculoskeletal: ABSENT: joint swelling Integumentary: ABSENT: rash, wounds Neurological: ABSENT: abnormal gait, abnormal speech, confusion, dizziness, focal weakness, syncope Psychiatric: ABSENT: anxiety, depression, homidical ideation, suicidal ideation Endocrine: ABSENT: cold intolerance, heat intolerance, polydipsia, polyuria Hematologic/Lymphatic: ABSENT: easy bleeding, easy bruising Physical Exam Vital Signs: Temp Pulse Resp BP Pulse Ox 98.1 F 71 16 110/45 L 97 05/22/17 03:25 05/22/17 03:25 05/22/17 03:25 05/22/17 03:25 05/22/17 03:25 Intake & Output 05/20/17 05/21/17 05/22/17 11:59 11:59 11:59 Weight 78.3 kg General appearance: PRESENT: cooperative, mild distress Head exam: PRESENT: atraumatic, normocephalic Eye exam: PRESENT: conjunctiva pink, EOMI, PERRLA. ABSENT: scleral icterus Ear exam: PRESENT: normal external ear exam Mouth exam: PRESENT: moist, tongue midline Neck exam: ABSENT: carotid bruit, JVD, lymphadenopathy, thyromegaly Respiratory exam: PRESENT: clear to auscultation pebbles. ABSENT: rales, rhonchi, wheezes Cardiovascular exam: PRESENT: RRR, systolic murmur. ABSENT: diastolic murmur, rubs Pulses: PRESENT: normal dorsalis pedis pul Vascular exam: PRESENT: normal capillary refill GI/Abdominal exam: PRESENT: diminished bowel sounds, distended, hypoactive bowel sounds, soft, tenderness. ABSENT: ascites, guarding, hernia, rigid Rectal exam: PRESENT: deferred Extremities exam: PRESENT: full ROM. ABSENT: calf tenderness, clubbing, pedal edema Neurological exam: PRESENT: alert, awake, oriented to person, oriented to place , oriented to time, oriented to situation, CN II-XII grossly intact. ABSENT: motor sensory deficit Psychiatric exam: PRESENT: appropriate affect, normal mood. ABSENT: homicidal ideation, suicidal ideation Skin exam: PRESENT: dry, intact, warm. ABSENT: cyanosis, rash Results Laboratory Results: 05/22/17 04:30 05/22/17 04:30 Sodium 137.1 Potassium 3.0 L* Chloride 104 Carbon Dioxide 27 Anion Gap 6 BUN 11 Creatinine 0.90 Est GFR ( Amer) > 60 Est GFR (Non-Af Amer) > 60 Glucose 104 Calcium 7.1 L Total Bilirubin 0.5 AST 16 ALT 27 Alkaline Phosphatase 77 Total Protein 5.4 L Albumin 2.8 L Impressions: KUB X-Ray 05/21/17 19:40 IMPRESSION: Constellation of findings consistent with developing small bowel obstruction. Abdomen/Pelvis CT 05/21/17 21:01 IMPRESSION: Status post hemicolectomy with intact anastomosis. Gas and fluid- filled small bowel without evidence of mechanical obstruction or mass. Assessment & Plan - Diagnosis (1) Ileus Is this a current diagnosis for this admission?: Yes Plan: Observation on a monitored bed, evaluate magnesium replete potassium and magnesium empirically, symptomatic management trial clear liquid diet reevaluate chemistry (2) Anemia Is this a current diagnosis for this admission?: Yes Plan: Likely related to chemotherapy, follow-up anemia workup (3) Thrombocytopenia Is this a current diagnosis for this admission?: Yes Plan: Likely secondary to chemotherapy reevaluate CBC (4) Dehydration Is this a current diagnosis for this admission?: Yes Plan: Symptomatic management and IV fluid repletion (5) Persistent vomiting Is this a current diagnosis for this admission?: Yes Plan: Secondary to ileus, symptomatic management - Time Time Spent: 30 to 50 Minutes
[2017-05-22 05:54] LABS: HEMOGLOBIN 7.9 g/dL (12.0-15.5)
[2017-05-22] MEDS ORDERED: POTASSIUM CHLORIDE 10 MEQ TABLET.SA PO ONE (06:00)
[2017-05-22] MEDS: POTASSIUM CHLORIDE 20 MEQ/50 ML RTU IV SCH ×2 (06:08→11:02)
[2017-05-22 07:16] LABS: FOLATE > 20.00 ng/mL (>2.76)
[2017-05-22 07:35] LABS: APPEARANCE,URINE CLEAR; BILIRUBIN,URINE NEGATIVE (NEGATIVE); GLUCOSE, URINE >=500 mg/dL (NEGATIVE); KETONES,URINE TRACE mg/dL (NEGATIVE); LEUKOCYTE ESTERASE,URINE NEGATIVE (NEGATIVE); NITRITE,URINE NEGATIVE (NEGATIVE); PROTEIN,URINE NEGATIVE (NEGATIVE); URINE SPECIFIC GRAVITY 1.026; UROBILINOGEN,URINE NEGATIVE mg/dL (<2.0)
[2017-05-22] MEDS ORDERED: POTASSI CL 20 MEQ/50 ML RIDER 20 MEQ/50 ML RTUPB IV SCH (07:35)
[2017-05-22] MEDS ORDERED: IPRATROPIUM/ALBUTEROL 120 PUFF/4 GM MDI IH SCH (08:00)
[2017-05-22] MEDS: FAMOTIDINE INJ/PF 20 MG/2 ML SDV IV SCH ×2 (09:44→21:06)
[2017-05-22] MEDS: ONDANSETRON HCL INJ/PF 4 MG/2 ML SDV IV PRN ×3 (09:44→18:30)
[2017-05-22] MEDS: INSULIN DETEMIR 100 UNIT/ML 3 ML PEN SUBCUT SCH ×2 (10:10→18:26)
[2017-05-22] MEDS ORDERED: POTASSIUM CHLORIDE 20 MEQ/50 ML RTU IV ONE (10:45)
--- NOTE | 2017-05-22 11:54 | PDOC PROGRESS REPORT ---
Subjective Progress Note for:: 05/22/17 Subjective:: Patient is seen on rounds. She is resting on the side of the bed. She states she is feeling much better than she did when she came in . She is still nauseated and having diarrhea, but no longer vomiting. She states she has been sick and vomiting since receiving chemotherapy 2 weeks ago. She states she has been going to the oncology infusion center for hydration every other day for the last week. Her symptoms became worse at home despite oral zofran. She denies any shortness of breath, chest pain or dyspnea. She denies any incisional chest wall pain. She denies any significant arthralgias or myalgias. Remaining review of systems are negative. Physical Exam Vital Signs: Temp Pulse Resp BP Pulse Ox 97.6 F 71 18 110/53 L 100 05/22/17 07:34 05/22/17 07:34 05/22/17 07:34 05/22/17 07:34 05/22/17 07:34 Intake & Output 05/21/17 05/22/17 05/23/17 06:59 06:59 06:59 Intake Total 835 Output Total 0 Balance 835 Weight 78.3 kg General appearance: PRESENT: no acute distress, well-developed, well-nourished Head exam: PRESENT: atraumatic, normocephalic Eye exam: PRESENT: conjunctiva pale Ear exam: PRESENT: normal external ear exam Mouth exam: PRESENT: moist, tongue midline Neck exam: ABSENT: carotid bruit, JVD, lymphadenopathy, thyromegaly Respiratory exam: PRESENT: clear to auscultation pebbles. ABSENT: rales, rhonchi, wheezes Cardiovascular exam: PRESENT: RRR. ABSENT: diastolic murmur, rubs, systolic murmur Pulses: PRESENT: normal dorsalis pedis pul GI/Abdominal exam: PRESENT: hyperactive bowel sounds, soft Rectal exam: PRESENT: deferred Extremities exam: PRESENT: full ROM. ABSENT: calf tenderness, clubbing, pedal edema Musculoskeletal exam: PRESENT: ambulatory, full ROM, normal inspection Neurological exam: PRESENT: alert, awake, oriented to person, oriented to place , oriented to time, oriented to situation, CN II-XII grossly intact. ABSENT: motor sensory deficit Psychiatric exam: PRESENT: appropriate affect, normal mood. ABSENT: homicidal ideation, suicidal ideation Skin exam: PRESENT: dry, intact, warm. ABSENT: cyanosis, rash Results Laboratory Results: 05/22/17 04:30 05/22/17 04:30 05/22/17 05/22/17 05/22/17 04:30 04:30 04:30 WBC 5.1 RBC 3.03 L Hgb 7.9 L Hct 23.0 L MCV 76 L MCH 26.0 L MCHC 34.3 RDW 28.6 H Plt Count 60 L Seg Neutrophils % 65.2 Lymphocytes % 25.6 Monocytes % 7.7 Eosinophils % 1.3 Basophils % 0.2 Absolute Neutrophils 3.3 Absolute Lymphocytes 1.3 Absolute Monocytes 0.4 Absolute Eosinophils 0.1 Absolute Basophils 0.0 Retic Count (auto) 2.12 Absolute Retic 0.065 Sodium 137.1 Potassium 3.0 L* Chloride 104 Carbon Dioxide 27 Anion Gap 6 BUN 11 Creatinine 0.90 Est GFR ( Amer) > 60 Est GFR (Non-Af Amer) > 60 Glucose 104 Calcium 7.1 L Iron TIBC % Saturation Ferritin Total Bilirubin 0.5 AST 16 ALT 27 Alkaline Phosphatase 77 Total Protein 5.4 L Albumin 2.8 L Vitamin B12 Folate Urine Color Urine Appearance Urine pH Ur Specific Guild Urine Protein Urine Glucose (UA) Urine Ketones Urine Blood Urine Nitrite Ur Leukocyte Esterase Urine WBC (Auto) Urine RBC (Auto) 05/22/17 05/22/17 04:30 07:01 WBC RBC Hgb Hct MCV MCH MCHC RDW Plt Count Seg Neutrophils % Lymphocytes % Monocytes % Eosinophils % Basophils % Absolute Neutrophils Absolute Lymphocytes Absolute Monocytes Absolute Eosinophils Absolute Basophils Retic Count (auto) Absolute Retic Sodium Potassium Chloride Carbon Dioxide Anion Gap BUN Creatinine Est GFR ( Amer) Est GFR (Non-Af Amer) Glucose Calcium Iron 31.5 L TIBC 260 % Saturation 12 Ferritin 22.20 Total Bilirubin AST ALT Alkaline Phosphatase Total Protein Albumin Vitamin B12 > 1000.0 H Folate > 20.00 Urine Color YELLOW Urine Appearance CLEAR Urine pH 5.0 Ur Specific Guild 1.026 Urine Protein NEGATIVE Urine Glucose (UA) >=500 H Urine Ketones TRACE H Urine Blood SMALL H Urine Nitrite NEGATIVE Ur Leukocyte Esterase NEGATIVE Urine WBC (Auto) 1 Urine RBC (Auto) 1 Impressions: KUB X-Ray 05/21/17 19:40 IMPRESSION: Constellation of findings consistent with developing small bowel obstruction. Abdomen/Pelvis CT 05/21/17 21:01 IMPRESSION: Status post hemicolectomy with intact anastomosis. Gas and fluid- filled small bowel without evidence of mechanical obstruction or mass. Assessment & Plan - Diagnosis (1) Persistent vomiting Is this a current diagnosis for this admission?: Yes Plan: Continue IV fluids, zofran IV q4h prn. Advance diet as tolerates (2) Hypokalemia Is this a current diagnosis for this admission?: Yes Plan: Replete and monitor (3) Anemia Qualifiers: Anemia type: iron deficiency Iron deficiency anemia type: unspecified iron deficiency Qualified Code(s): D50.9 - Iron deficiency anemia, unspecified Is this a current diagnosis for this admission?: Yes Plan: Asymptomatic. will continue to monitor with oncology (4) Dehydration Is this a current diagnosis for this admission?: Yes (5) Lung cancer Qualifiers: Laterality: right Is this a current diagnosis for this admission?: Yes Plan: Per oncology management (6) Diarrhea Qualifiers: Diarrhea type: unspecified type Qualified Code(s): R19.7 - Diarrhea, unspecified Is this a current diagnosis for this admission?: Yes Plan: Will check cultures, patient describes somewhat chronic but worsening picture over the last 2 weeks - Time Time Spent with patient: 25-34 minutes Critical Time spent with patient: 25-34 minutes Medications reviewed and adjusted accordingly: Yes Anticipated discharge: Home
[2017-05-22] MEDS: TEMAZEPAM 15 MG CAPSULE PO SCH (21:06)
[2017-05-23] MEDS: HEPARIN SOD (PORCINE) 5,000 UNIT/ML 1 ML SYRINGE SUBCUT SCH ×3 (04:22→22:10)
[2017-05-23] MEDS: FAMOTIDINE INJ/PF 20 MG/2 ML SDV IV SCH (09:10)
[2017-05-23] MEDS: IPRATROPIUM/ALBUTEROL 120 PUFF/4 GM MDI IH SCH (09:11)
[2017-05-23] MEDS: INSULIN DETEMIR 100 UNIT/ML 3 ML PEN SUBCUT SCH ×2 (09:11→18:28)
--- NOTE | 2017-05-23 11:40 | Physician Advisory Note ---
Physician Advisor ProgressNote .: [facility] medical [facility] for this patient. Physician Advisor Statement: Please document: 1. "failed aggressive outpt tx" (see below - this really helps support Inpt) 2. STatus appropriate for INpt since she came in. (Discussed w/[facility] , who agrees & will change their determination of 05/22.) - ED note documents pt unable to tolerate po since last chemo tx 2 weeks prior, failed aggressive outpt tx w/3 days of IVF w/IV antiemetics (q 2 days x 3) at office already, trying to avoid hospitalization. - Pt on chemo, w/hypoKalemia & CT showing ileus. In hospital care 05/21 [place] & 05/22 [place]. Needing prn IV Zofran 3x on 05/22. CK
--- NOTE | 2017-05-23 13:39 | PDOC CONSULTATION ---
Consultation Consult Date: 05/23/17 Attending physician:: KALIA EDGAR Consult reason:: Nausea vomiting, diarrhea, dehydration, stage II lung cancer status post chemotherapy History of Present Illness Admission Date/PCP: 05/21/17 23:05 Patient complains of: Nausea, vomiting, dehydration History of Present Illness: 71-year-old female well-known to her oncology clinic with recent diagnosis of stage II lung cancer,She had surgery, recently we had been giving her adjuvant chemotherapy with Carboplatin and Alimta. Unfortunately she had a lot of nausea and vomiting with the last 2 cycles, the third cycle was complicated with nausea for 3 weeks post chemotherapy. Because of that we decided on discontinuing chemotherapy and did not give her cycle #4. We gave her hydration last week, but through the weekend she had severe nausea and vomiting and ultimately presented to the ED, she was found to be dehydrated, hypokalemic, because of the diarrhea there was concern of C. difficile and C. difficile toxin was negative however. She has been on hydration, she is feeling better now and would like to advance her diet. Unfortunately her hemoglobin is fallen to 7.9. Of note she does have history of hemochromatosis in the past and we had done multiple phlebotomies to get her down to a ferritin under 50. Her ferritin most recently was 22. Past Medical History Cardiac Medical History: Reports: Hyperlipidema, Hypertension - states "doesn't have high BP, on meds because of diabetes" Denies: Atrial Fibrillation, Congestive Heart Failure, Coronary Artery Disease, Myocardial Infarction, Peripheral Vascular Disease, Pulmonary Embolism , Heart Murmur Pulmonary Medical History: Reports: Bronchitis, Chronic Obstructive Pulmonary Disease (COPD), Sleep Apnea Denies: Asthma, Pneumonia, Respiratory Failure, Tuberculosis Neurological Medical History: Denies: Seizures Endocrine Medical History: Reports: Diabetes Mellitus Type 2 - insulin dependent , Hypothyroidism Denies: Hyperthyroidism Malignancy Medical History: Reports: Cervical Cancer, Colorectal Cancer Denies: Breast Cancer, Lung Cancer, Ovarian Cancer GI Medical History: Reports: Gastroesophageal Reflux Disease Denies: Crohn's Disease, Hiatal Hernia Musculoskeltal Medical History: Reports: Arthritis Denies: Fibromyalgia Psychiatric Medical History: Reports: Depression Hematology: Reports: Other - Hemochromatosis Denies: Anemia Infectious Medical History: Denies: Methicillin-Resistant Staph Aureus Past Surgical History Past Surgical History: Reports: Appendectomy, Cholecystectomy, Hysterectomy, Orthopedic Surgery - lt. hip replacement, hip surgery x 8 to left hip, Tubal Ligation Denies: Amputation, Section, Colostomy, Coronary Artery Bypass Graft , Gastric Bypass Surgery, Herniorrhaphy, Mastectomy, Pacemaker, Tonsillectomy Social History Lives with: Spouse/Significant other Smoking Status: Former Smoker Frequency of Alcohol Use: None Hx Recreational Drug Use: No Drugs: None Hx Prescription Drug Abuse: No - Advance Directive Resuscitation Status: Full Code Family History Family History: CVA, Hypertension Parental Family History Reviewed: Yes Children Family History Reviewed: Yes Sibling(s) Family History Reviewed.: Yes Medication/Allergy Home Medications: Albuterol Sulfate [Albuterol Sulfate 2.5mg/3 mL] 1 vial IH Q4HP PRN 05/22/17 Alendronate Sodium [Fosamax] 70 mg PO JONSE@1000 05/22/17 Atorvastatin Calcium [Lipitor 20 mg Tablet] 20 mg PO QHS 05/22/17 Canagliflozin [Invokana] 100 mg PO QAM 05/22/17 Folic Acid 1 mg PO DAILY 05/22/17 Insulin Detemir [Levemir Flextouch] 30 unit SQ BID@0800,2000 05/22/17 Levothyroxine Sodium [Synthroid] 125 mcg PO DAILY 05/22/17 Metformin HCl [Glucophage 500 mg Tablet] 500 mg PO BIDACBS 05/22/17 Omeprazole 40 mg PO QAM 05/22/17 Ondansetron [Zofran Odt] 8 mg PO TIDP PRN 05/22/17 Oxycodone HCl [Oxy-Ir 5 mg Tablet] 5 mg PO BIDP PRN 05/22/17 Pregabalin [Lyrica] 150 mg PO Q12 05/22/17 Sertraline HCl [Zoloft 50 mg Tablet] 50 mg PO DAILY 05/22/17 Temazepam [Restoril] 30 mg PO QHS 05/22/17 Allergies/Adverse Reactions: adhesive Allergy (Severe, Verified 12/15/16 09:31) BURNING AND RASH codeine [Codeine] Allergy (Severe, Verified 12/15/16 09:31) Nausea Penicillins Allergy (Severe, Verified 12/15/16 09:31) rash metal Allergy (Uncoded 12/14/16 18:47) skin peels Review of Systems Constitutional: ABSENT: chills, fever(s), headache(s), weight gain, weight loss Eyes: ABSENT: visual disturbances Ears: ABSENT: hearing changes Cardiovascular: ABSENT: chest pain, dyspnea on exertion, edema, orthropnea, palpitations Respiratory: ABSENT: cough, hemoptysis Gastrointestinal: ABSENT: abdominal pain, constipation, diarrhea, hematemesis, hematochezia, nausea, vomiting Genitourinary: ABSENT: dysuria, hematuria Musculoskeletal: ABSENT: joint swelling Integumentary: ABSENT: rash, wounds Neurological: ABSENT: abnormal gait, abnormal speech, confusion, dizziness, focal weakness, syncope Psychiatric: ABSENT: anxiety, depression, homidical ideation, suicidal ideation Endocrine: ABSENT: cold intolerance, heat intolerance, polydipsia, polyuria Hematologic/Lymphatic: ABSENT: easy bleeding, easy bruising Physical Exam Vital Signs: Temp Pulse Resp BP Pulse Ox 98.2 F 65 18 110/40 L 100 05/23/17 11:38 05/23/17 11:38 05/23/17 11:38 05/23/17 11:38 05/23/17 11:38 Intake & Output 05/22/17 05/23/17 05/24/17 06:59 06:59 06:59 Intake Total 835 2150 Output Total 0 Balance 835 2150 Weight 78.3 kg 62.7 kg General appearance: PRESENT: no acute distress, well-developed, well-nourished Head exam: PRESENT: atraumatic, normocephalic Eye exam: PRESENT: conjunctiva pink, EOMI, PERRLA. ABSENT: scleral icterus Ear exam: PRESENT: normal external ear exam Mouth exam: PRESENT: moist, tongue midline Neck exam: ABSENT: carotid bruit, JVD, lymphadenopathy, thyromegaly Respiratory exam: PRESENT: clear to auscultation pebbles. ABSENT: rales, rhonchi, wheezes Cardiovascular exam: PRESENT: RRR. ABSENT: diastolic murmur, rubs, systolic murmur Pulses: PRESENT: normal dorsalis pedis pul Vascular exam: PRESENT: normal capillary refill GI/Abdominal exam: PRESENT: normal bowel sounds, soft. ABSENT: distended, guarding, mass, organolmegaly, rebound, tenderness Rectal exam: PRESENT: deferred Extremities exam: PRESENT: full ROM. ABSENT: calf tenderness, clubbing, pedal edema Neurological exam: PRESENT: alert, awake, oriented to person, oriented to place , oriented to time, oriented to situation, CN II-XII grossly intact. ABSENT: motor sensory deficit Psychiatric exam: PRESENT: appropriate affect, normal mood. ABSENT: homicidal ideation, suicidal ideation Skin exam: PRESENT: dry, intact, warm. ABSENT: cyanosis, rash Results Laboratory Results: 05/22/17 04:30 05/22/17 04:30 Impressions: KUB X-Ray 05/21/17 19:40 IMPRESSION: Constellation of findings consistent with developing small bowel obstruction. Abdomen/Pelvis CT 05/21/17 21:01 IMPRESSION: Status post hemicolectomy with intact anastomosis. Gas and fluid- filled small bowel without evidence of mechanical obstruction or mass. Assessment & Plan - Diagnosis (1) Persistent vomiting Is this a current diagnosis for this admission?: Yes Plan: Nausea and vomiting, chemotherapy-induced, it should improve over time, continue with IV hydration. I will advance her diet and if she tolerates diet well she can discharge tomorrow. (2) Anemia Qualifiers: Anemia type: iron deficiency Iron deficiency anemia type: other iron deficiency Qualified Code(s): D50.8 - Other iron deficiency anemias Is this a current diagnosis for this admission?: Yes Plan: Severe iron deficiency anemia secondary to previous phlebotomies most likely, also secondary to recent chemotherapy, we will plan to give her blood today, we should not give her IV iron at this point because of the hemochromatosis. - Time Time Spent: Greater than 70 Minutes Critical Time spent with patient: 35 or more minutes - Inpatient Certification Based on my medical assessment, after consideration of the patient's comorbidities, presenting symptoms, or acuity I expect that the services needed warrant INPATIENT care.: Yes I certify that my determination is in accordance with my understanding of Medicare's requirements for reasonable and necessary INPATIENT services [42 CFR 412.3e].: Yes Medical Necessity: Failure to Improve With Outpatient Therapy, Need For IV Fluids, Other - Blood transfusion
[2017-05-23] MEDS ORDERED: DIPHENHYDRAMINE HCL 25 MG/10 ML UDC PO PRN (13:54)
[2017-05-23] MEDS ORDERED: ACETAMINOPHEN 325 MG TABLET PO PRN (13:54)
[2017-05-23] MEDS ORDERED: LORAZEPAM INJ 2 MG/1 ML VIAL IV PRN (13:55)
[2017-05-23] MEDS: ONDANSETRON HCL INJ/PF 4 MG/2 ML SDV IV PRN (14:46)
[2017-05-23] MEDS ORDERED: ONDANSETRON HCL INJ/PF 4 MG/2 ML SDV IV PRN (15:30)
[2017-05-23 15:41] LABS: HEMATOCRIT 26.5 % (36.0-47.0); HGB HCT DIFFERENCE 0.5; MEAN CORPUSCULAR HEMOGLOBIN 26.4 pg (27.0-33.4); MEAN CORPUSCULAR HGB CONC 34.1 g/dL (32.0-36.0); MEAN CORPUSCULAR VOLUME 78 fl (80-97); RED BLOOD COUNT 3.42 10^6/uL (3.72-5.28); WHITE BLOOD COUNT 4.4 10^3/uL (4.0-10.5)
--- NOTE | 2017-05-23 16:48 | PDOC PROGRESS REPORT ---
Subjective Progress Note for:: 05/23/17 Subjective:: Patient is feeling better. No nausea or vomiting this time. Diarrhea is less. No chills or fever. No chest pain or shortness of breath. Patient found to be anemic and 2 units of packed RBC were given. Physical Exam Vital Signs: Temp Pulse Resp BP Pulse Ox 98.2 F 65 18 110/40 L 100 05/23/17 11:38 05/23/17 11:38 05/23/17 11:38 05/23/17 11:38 05/23/17 11:38 General appearance: PRESENT: no acute distress, cooperative, obese Head exam: PRESENT: normocephalic Eye exam: PRESENT: EOMI Mouth exam: PRESENT: moist, neck supple Neck exam: ABSENT: JVD Respiratory exam: PRESENT: clear to auscultation pebbles. ABSENT: rhonchi, wheezes Cardiovascular exam: PRESENT: RRR. ABSENT: gallop GI/Abdominal exam: PRESENT: soft. ABSENT: distended, tenderness Extremities exam: ABSENT: pedal edema Neurological exam: PRESENT: alert, awake, oriented to situation Skin exam: PRESENT: dry, warm. ABSENT: cyanosis Results Laboratory Results: 05/23/17 14:22 05/23/17 05/23/17 14:22 14:22 WBC 4.4 RBC 3.42 L Hgb 9.0 L Hct 26.5 L MCV 78 L MCH 26.4 L MCHC 34.1 RDW 30.0 H Plt Count 87 L Blood Type A NEGATIVE Antibody Screen POSITIVE Impressions: KUB X-Ray 05/21/17 19:40 IMPRESSION: Constellation of findings consistent with developing small bowel obstruction. Abdomen/Pelvis CT 05/21/17 21:01 IMPRESSION: Status post hemicolectomy with intact anastomosis. Gas and fluid- filled small bowel without evidence of mechanical obstruction or mass. Assessment & Plan - Diagnosis (1) Ileus Is this a current diagnosis for this admission?: Yes (2) Anemia Qualifiers: Anemia type: iron deficiency Iron deficiency anemia type: other iron deficiency Qualified Code(s): D50.8 - Other iron deficiency anemias Is this a current diagnosis for this admission?: Yes (3) Lung cancer Qualifiers: Laterality: right Is this a current diagnosis for this admission?: Yes (4) Hypokalemia Is this a current diagnosis for this admission?: Yes (5) Essential hypertension Is this a current diagnosis for this admission?: Yes (6) Hyperlipidemia Qualifiers: Hyperlipidemia type: unspecified Qualified Code(s): E78.5 - Hyperlipidemia , unspecified Is this a current diagnosis for this admission?: Yes (7) COPD (chronic obstructive pulmonary disease) Qualifiers: COPD type: unspecified COPD Qualified Code(s): J44.9 - Chronic obstructive pulmonary disease, unspecified Is this a current diagnosis for this admission?: Yes (8) Hypothyroidism (acquired) Is this a current diagnosis for this admission?: Yes (9) GERD (gastroesophageal reflux disease) Qualifiers: Esophagitis presence: without esophagitis Qualified Code(s): K21.9 - Gastro -esophageal reflux disease without esophagitis Is this a current diagnosis for this admission?: Yes (10) Osteoarthritis Qualifiers: Osteoarthritis location: unspecified site Osteoarthritis type: unspecified Qualified Code(s): M19.90 - Unspecified osteoarthritis, unspecified site Is this a current diagnosis for this admission?: Yes - Time Time Spent with patient: 25-34 minutes - Plan Summary Plan Summary: Replace potassium and recheck level. 2 units of packed RBC transfusion. Recheck hematocrit in the morning. Continue antiemetics as needed. Continue gentle hydration. Advance diet. If patient improves in the morning possibly can be discharged. Case discussed with oncology service.
[2017-05-23] MEDS: TEMAZEPAM 15 MG CAPSULE PO SCH (22:14)
[2017-05-24] MEDS: FAMOTIDINE INJ/PF 20 MG/2 ML SDV IV SCH ×2 (02:41→10:10)
[2017-05-24 03:09] LABS: ABSOLUTE EOSINOPHILS # (AUTO) 0.2 10^3/uL (0.0-0.6); ABSOLUTE LYMPHOCYTES (AUTO) 1.7 10^3/uL (0.5-4.7); ABSOLUTE MONOCYTES (AUTO) 0.3 10^3/uL (0.1-1.4); ABSOLUTE NEUT (AUTO) 2.2 10^3/uL (1.7-8.2); BASOPHILS % (AUTO) 0.5 % (0-2); EOSINOPHILS % (AUTO) 5.4 % (0-6); HEMATOCRIT 31.4 % (36.0-47.0); HEMOGLOBIN 10.7 g/dL (12.0-15.5); HGB HCT DIFFERENCE 0.7; LYMPHOCYTES % (AUTO) 37.8 % (13-45); MEAN CORPUSCULAR HEMOGLOBIN 26.9 pg (27.0-33.4); MEAN CORPUSCULAR VOLUME 79 fl (80-97); MONOCYTES % (AUTO) 6.8 % (3-13); RED BLOOD COUNT 3.96 10^6/uL (3.72-5.28); RED CELL DISTRIBUTION WIDTH 27.9 % (11.5-14.0); SEGMENTED NEUTROPHILS % (AUTO) 49.5 % (42-78); WHITE BLOOD COUNT 4.5 10^3/uL (4.0-10.5)
[2017-05-24 03:35] LABS: POLYCHROMASIA SLIGHT
[2017-05-24 03:36] LABS: ANISOCYTOSIS 3+; HYPOCHROMASIA SLIGHT; MICROCYTOSIS SLIGHT; OVALOCYTES SLIGHT; POIKILOCYTOSIS SLIGHT; TEAR DROP CELLS SLIGHT
[2017-05-24 03:37] LABS: TOXIC GRANULATION 1+
[2017-05-24] MEDS: HEPARIN SOD (PORCINE) 5,000 UNIT/ML 1 ML SYRINGE SUBCUT SCH (05:39)
[2017-05-24 07:05] LABS: HEMATOCRIT 32.2 % (36.0-47.0); HEMOGLOBIN 10.9 g/dL (12.0-15.5); HGB HCT DIFFERENCE 0.5; MEAN CORPUSCULAR HEMOGLOBIN 26.8 pg (27.0-33.4); MEAN CORPUSCULAR HGB CONC 33.8 g/dL (32.0-36.0); MEAN CORPUSCULAR VOLUME 79 fl (80-97); RED BLOOD COUNT 4.06 10^6/uL (3.72-5.28); WHITE BLOOD COUNT 4.4 10^3/uL (4.0-10.5)
[2017-05-24 07:22] LABS: ANION GAP 10 (5-19); BLOOD UREA NITROGEN 7 mg/dL (7-20); CALCIUM 7.9 mg/dL (8.4-10.2); CARBON DIOXIDE 23 mmol/L (22-30); CHLORIDE 109 mmol/L (98-107); CREATININE RESULT 0.86 mg/dL (0.52-1.25); GLUCOSE 69 mg/dL (75-110); POTASSIUM 3.6 mmol/L (3.6-5.0); SODIUM 141.8 mmol/L (137-145)
--- NOTE | 2017-05-24 08:23 | PDOC PROGRESS REPORT ---
Subjective Progress Note for:: 05/24/17 Subjective:: No acute events overnight, patient has been tolerating p.o. well. Tolerated blood well and hemoglobin is improved to 11 platelets of improved to 90 Physical Exam Vital Signs: Temp Pulse Resp BP Pulse Ox 97.6 F 68 17 139/62 H 100 05/24/17 02:41 05/24/17 02:41 05/24/17 02:41 05/24/17 02:41 05/24/17 02:41 Intake & Output 05/23/17 05/24/17 05/25/17 06:59 06:59 06:59 Intake Total 2070 Output Total 400 Balance 1670 Weight 77.9 kg Results Laboratory Results: 05/24/17 06:37 05/24/17 06:37 05/23/17 05/23/17 05/23/17 14:22 14:22 17:20 WBC 4.4 RBC 3.42 L Hgb 9.0 L Hct 26.5 L MCV 78 L MCH 26.4 L MCHC 34.1 RDW 30.0 H Plt Count 87 L Seg Neutrophils % Lymphocytes % Monocytes % Eosinophils % Basophils % Absolute Neutrophils Absolute Lymphocytes Absolute Monocytes Absolute Eosinophils Absolute Basophils Sodium Potassium 3.6 Chloride Carbon Dioxide Anion Gap BUN Creatinine Est GFR ( Amer) Est GFR (Non-Af Amer) Glucose Calcium Blood Type A NEGATIVE Antibody Screen POSITIVE 05/24/17 05/24/17 05/24/17 02:30 06:37 06:37 WBC 4.5 4.4 RBC 3.96 4.06 Hgb 10.7 L 10.9 L Hct 31.4 L 32.2 L MCV 79 L 79 L MCH 26.9 L 26.8 L MCHC 34.0 33.8 RDW 27.9 H 28.0 H Plt Count 90 L 94 L Seg Neutrophils % 49.5 Lymphocytes % 37.8 Monocytes % 6.8 Eosinophils % 5.4 Basophils % 0.5 Absolute Neutrophils 2.2 Absolute Lymphocytes 1.7 Absolute Monocytes 0.3 Absolute Eosinophils 0.2 Absolute Basophils 0.0 Sodium 141.8 Potassium 3.6 Chloride 109 H Carbon Dioxide 23 Anion Gap 10 BUN 7 Creatinine 0.86 Est GFR ( Amer) > 60 Est GFR (Non-Af Amer) > 60 Glucose 69 L Calcium 7.9 L Blood Type Antibody Screen Impressions: KUB X-Ray 05/21/17 19:40 IMPRESSION: Constellation of findings consistent with developing small bowel obstruction. Abdomen/Pelvis CT 05/21/17 21:01 IMPRESSION: Status post hemicolectomy with intact anastomosis. Gas and fluid- filled small bowel without evidence of mechanical obstruction or mass. Assessment & Plan - Diagnosis (1) Persistent vomiting Is this a current diagnosis for this admission?: Yes Plan: Improved, likely chemotherapy related, DC home today (2) Anemia Qualifiers: Anemia type: iron deficiency Iron deficiency anemia type: other iron deficiency Qualified Code(s): D50.8 - Other iron deficiency anemias Is this a current diagnosis for this admission?: Yes Plan: Improved, will monitor as outpatient, follow-up labs in our office later this week. - Time Time Spent with patient: 15-24 minutes Critical Time spent with patient: 15-24 minutes
--- NOTE | 2017-05-24 10:07 | PDOC DISCHARGE SUMMARY ---
General - Admit/Disc Date/PCP Admission Date/Primary Care Provider: 05/23/17 12:00 Discharge Date: 05/24/17 - Discharge Diagnosis (1) Ileus Is this a current diagnosis for this admission?: Yes (2) Anemia Is this a current diagnosis for this admission?: Yes (3) Lung cancer Is this a current diagnosis for this admission?: Yes (4) Hypokalemia Is this a current diagnosis for this admission?: Yes (5) Essential hypertension Is this a current diagnosis for this admission?: Yes (6) Hyperlipidemia Is this a current diagnosis for this admission?: Yes (7) COPD (chronic obstructive pulmonary disease) Is this a current diagnosis for this admission?: Yes (8) Hypothyroidism (acquired) Is this a current diagnosis for this admission?: Yes (9) GERD (gastroesophageal reflux disease) Is this a current diagnosis for this admission?: Yes (10) Osteoarthritis Is this a current diagnosis for this admission?: Yes - Additional Information Resuscitation Status: Full Code Discharge Diet: Cardiac, Diabetic, Other (Comments) - Soft mechanical Discharge Activity: Activity As Tolerated, Balance Activity w/Rest Home Medications: Albuterol Sulfate [Albuterol Sulfate 2.5mg/3 mL] 1 vial IH Q4HP PRN 05/22/17 Alendronate Sodium [Fosamax] 70 mg PO JONES@1000 05/22/17 Atorvastatin Calcium [Lipitor 20 mg Tablet] 20 mg PO QHS 05/22/17 Canagliflozin [Invokana] 100 mg PO QAM 05/22/17 Folic Acid 1 mg PO DAILY 05/22/17 Levothyroxine Sodium [Synthroid] 125 mcg PO DAILY 05/22/17 Metformin HCl [Glucophage 500 mg Tablet] 500 mg PO BIDACBS 05/22/17 Omeprazole 40 mg PO QAM 05/22/17 Ondansetron [Zofran Odt] 8 mg PO TIDP PRN 05/22/17 Oxycodone HCl [Oxy-Ir 5 mg Tablet] 5 mg PO BIDP PRN 05/22/17 Pregabalin [Lyrica] 150 mg PO Q12 05/22/17 Sertraline HCl [Zoloft 50 mg Tablet] 50 mg PO DAILY 05/22/17 Temazepam [Restoril] 30 mg PO QHS 05/22/17 Insulin Detemir [Levemir Flextouch] 20 unit SQ BID@0800,1999 #0 05/24/17 Additional Information: Return to the emergency room if symptoms recur History of Present Illness Patient complains of: Nausea and vomiting History of Present Illness: ANKUR BURNETT is a 71 year old female with a past medical history of lung cancer status post left-sided lobectomy 4 weeks ago and receiving chemotherapy last dose 2 weeks ago with unknown agent who is had persistent nausea and vomiting over the last 7 days and intolerant of p.o. intake. This week she has received several IV fluid infusions at her oncologist office, she presents with nausea vomiting and abdominal distention. Workup reveals anemia, thrombocytopenia and ileus by CT abdomen and pelvis. Denying chest pain palpitations or shortness of breath. She started on IV fluid hydration, symptomatic management and referred to the hospitalist for admission. Hospital Course Hospital Course: The patient was admitted to the medical floor. Patient had an abdominal x-ray suggestive of obstruction however a follow-up CT of the abdomen and pelvis did not reveal any obstruction. Dr. Roblero was consulted and the patient's symptoms of nausea and vomiting probably related to chemotherapy. Patient was hydrated, anti-emetics was given as needed, electrolytes were monitored and were replaced accordingly. Eventually with hydration the patient's symptomatologies improved. Nausea and vomiting resolved. Patient was able to tolerate advancing diet. The rest of the hospital stays unremarkable. Patient was cleared by oncology to be discharged. Patient was advised to follow-up with primary care physician in 1 week and follow stool culture report outpatient. Clostridium difficile toxin was negative. Physical Exam Vital Signs: Temp Pulse Resp BP Pulse Ox 98.5 F 63 17 136/65 H 97 05/24/17 08:05 05/24/17 08:05 05/24/17 08:05 05/24/17 08:05 05/24/17 08:05 Intake & Output 05/23/17 05/24/17 05/25/17 06:59 06:59 06:59 Intake Total 2070 Output Total 400 Balance 1670 Weight 77.9 kg General appearance: PRESENT: no acute distress, cooperative Head exam: PRESENT: normocephalic Eye exam: PRESENT: EOMI Mouth exam: PRESENT: moist, neck supple Neck exam: ABSENT: JVD Respiratory exam: PRESENT: clear to auscultation pebbles - Anteriorly, unlabored. ABSENT: rhonchi, wheezes Cardiovascular exam: PRESENT: RRR, +S1, +S2. ABSENT: gallop GI/Abdominal exam: PRESENT: normal bowel sounds, soft. ABSENT: distended, tenderness Extremities exam: ABSENT: pedal edema Neurological exam: PRESENT: alert, awake, oriented to person, oriented to place , oriented to time, oriented to situation Skin exam: PRESENT: dry, warm. ABSENT: cyanosis Results Laboratory Results: 05/24/17 06:37 05/24/17 06:37 05/23/17 05/23/17 05/23/17 14:22 14:22 17:20 WBC 4.4 RBC 3.42 L Hgb 9.0 L Hct 26.5 L MCV 78 L MCH 26.4 L MCHC 34.1 RDW 30.0 H Plt Count 87 L Seg Neutrophils % Lymphocytes % Monocytes % Eosinophils % Basophils % Absolute Neutrophils Absolute Lymphocytes Absolute Monocytes Absolute Eosinophils Absolute Basophils Sodium Potassium 3.6 Chloride Carbon Dioxide Anion Gap BUN Creatinine Est GFR ( Amer) Est GFR (Non-Af Amer) Glucose Calcium Blood Type A NEGATIVE Antibody Screen POSITIVE 05/24/17 05/24/17 05/24/17 02:30 06:37 06:37 WBC 4.5 4.4 RBC 3.96 4.06 Hgb 10.7 L 10.9 L Hct 31.4 L 32.2 L MCV 79 L 79 L MCH 26.9 L 26.8 L MCHC 34.0 33.8 RDW 27.9 H 28.0 H Plt Count 90 L 94 L Seg Neutrophils % 49.5 Lymphocytes % 37.8 Monocytes % 6.8 Eosinophils % 5.4 Basophils % 0.5 Absolute Neutrophils 2.2 Absolute Lymphocytes 1.7 Absolute Monocytes 0.3 Absolute Eosinophils 0.2 Absolute Basophils 0.0 Sodium 141.8 Potassium 3.6 Chloride 109 H Carbon Dioxide 23 Anion Gap 10 BUN 7 Creatinine 0.86 Est GFR ( Amer) > 60 Est GFR (Non-Af Amer) > 60 Glucose 69 L Calcium 7.9 L Blood Type Antibody Screen Impressions: KUB X-Ray 05/21/17 19:40 IMPRESSION: Constellation of findings consistent with developing small bowel obstruction. Abdomen/Pelvis CT 05/21/17 21:01 IMPRESSION: Status post hemicolectomy with intact anastomosis. Gas and fluid- filled small bowel without evidence of mechanical obstruction or mass. Qualifiers PATEINT BEING DISCHARGED WITH ANY OF THE FOLLOWING DIAGNOSIS?: No Plan Discharge Plan: Follow-up with primary care physician in 1 week. Follow-up with Dr. Roblero in 1-2 weeks. Time Spent: Less than 30 Minutes
[2017-05-24] MEDS: IPRATROPIUM/ALBUTEROL 120 PUFF/4 GM MDI IH SCH (10:10)
[2017-05-24] MEDS: INSULIN DETEMIR 100 UNIT/ML 3 ML PEN SUBCUT SCH (10:10)
[2017-05-24 11:45] VITALS: BP 128/44
== END 2017-05-24 12:13 | disposition home or self-care (01) | DRG 812 ==
LOC: ER 19:09 → EH 23:05 → UNDOADMOB 23:12 → EH 23:12 → 4N 05-22 01:39 → OBSVTOIN 05-23 12:00
PROVIDERS: ADMIT Internal Medicine; ATTEND Internal Medicine
PROC: 30233N1 Transfusion of Nonautologous Red Blood Cells into Peripheral Vein, Percutaneous Approach (ICD-10-PCS; principal; 2017-05-23)
DX: D64.81 Anemia due to antineoplastic chemotherapy (principal); K56.7 Ileus, unspecified; C34.90 Malignant neoplasm of unspecified part of unspecified bronchus or lung; E87.6 Hypokalemia; I10 Essential (primary) hypertension; E78.5 Hyperlipidemia, unspecified; J44.9 Chronic obstructive pulmonary disease, unspecified; E03.9 Hypothyroidism, unspecified; K21.9 Gastro-esophageal reflux disease without esophagitis; M19.90 Unspecified osteoarthritis, unspecified site; E86.0 Dehydration; G47.30 Sleep apnea, unspecified; T45.1X5A Adverse effect of antineoplastic and immunosuppressive drugs, initial encounter; F32.9 Major depressive disorder, single episode, unspecified; R11.2 Nausea with vomiting, unspecified; D50.8 Other iron deficiency anemias; D69.59 Other secondary thrombocytopenia; R19.7 Diarrhea, unspecified; Z79.899 Other long term (current) drug therapy; Z79.4 Long term (current) use of insulin; Z90.2 Acquired absence of lung [part of]; Z90.49 Acquired absence of other specified parts of digestive tract; Z85.41 Personal history of malignant neoplasm of cervix uteri; Z85.038 Personal history of other malignant neoplasm of large intestine; Z90.710 Acquired absence of both cervix and uterus; Z96.642 Presence of left artificial hip joint; Z87.891 Personal history of nicotine dependence; Z82.3 Family history of stroke; Z82.49 Family history of ischemic heart disease and other diseases of the circulatory system; Z88.6 Allergy status to analgesic agent; Z88.0 Allergy status to penicillin; Z91.09 Other allergy status, other than to drugs and biological substances
CPT/HCPCS: 36415; 36430; 74000; 74177; 80048; 80053; 81001; 82607; 82728; 82746; 82962; 83540; 83550; 83690; 83735; 84132; 84484; 85025; 85027; 85045; 86850; 86870; 86900; 86901; 86920; 86922; 87045; 87205; 87493; 96365; 96375; 99285; G0378; J1815; J2405; J2765; J3475; J3480; J3490; J7030; J7120; P9016; S0028

== ENCOUNTER → 2017-09-22 | Outpatient (CLI) | payer MEDICARE ==
--- NOTE | 2017-09-22 09:15 | RADIOLOGY REPORT (SQ) ---
EXAM DESCRIPTION: CT CHEST WITHOUT COMPLETED DATE/TIME: 09/22/2017 8:38 am REASON FOR STUDY: C34.12 MALIGNANT NEOPLASM OF UPPER LOBE, LEFT BRONCHUS OR LUNG C34.12 MALIGNANT N EOPLASM OF UPPER LOBE, LEFT BRONCHUS OR CARMEL COMPARISON: 11/15/2016 TECHNIQUE: CT scan performed of the chest without intravenous contrast. Images reviewed with lung, soft tissue and bone windows. Reconstructed coronal and sagittal MPR images reviewed. All images st ored on PACS. All CT scanners at this facility use dose modulation, iterative reconstruction, and/or weight based d osing when appropriate to reduce radiation dose to as low as reasonably achievable (ALARA). [facility]: Dose Right [facility]: CareDose [facility]: Dose Right [facility]: Teradose 4D [facility]: [employer] RADIATION DOSE: CT Rad equipment meets quality standard of care and radiation dose reduction techniq ues were employed. CTDIvol: 9.4 mGy. DLP: 329 mGy-cm. mGy. LIMITATIONS: No technical limitations. FINDINGS: LUNGS AND PLEURA: There are postsurgical changes. The patient has had a prior left upper lobectomy. There is focal pleural thickening in the right lower lobe which is new from prior study. This is nonspecific but does not radiographically appear aggressive. This is stable to slightly imp roved when compared to 05/21/2017. There is a stable ground-glass nodule in the right upper lobe post eriorly. This is measured 1.4 cm. HILAR AND MEDIASTINAL STRUCTURES: No identified masses or abnormal nodes. No obvious aneurysm. HEART AND VASCULAR STRUCTURES: No aneurysm. No pericardial effusion. UPPER ABDOMEN: No significant findings. Limited exam. THYROID AND OTHER SOFT TISSUES: No masses. No adenopathy. BONES: No significant finding. HARDWARE: None in the chest. OTHER: No other significant findings. IMPRESSION: 1. Postsurgical changes with prior left upper lobectomy. There is a small air pleural thickening in the posterior aspect of the left base which overall is improved when compared to prior CT abdomen pelvis done on 05/21/2017. There is a stable ground-glass nodule in the right upper lobe m easured 1.4 cm. TECHNICAL DOCUMENTATION: JOB ID: [id number] Quality ID # [id number]: Final reports with documentation of one or more dose reduction techniques (e.g., Au tomated exposure control, adjustment of the mA and/or kV according to patient size, use of iterative reconstruction technique) 2010 [employer]- All Rights Reserved
== END ==
LOC: RAD 09:41
PROVIDERS: ATTEND Internal Medicine
DX: C34.12 Malignant neoplasm of upper lobe, left bronchus or lung (principal)
CPT/HCPCS: 71250

== ENCOUNTER → 2017-10-11 | Outpatient (CLI) | payer MEDICARE ==
--- NOTE | 2017-10-11 16:50 | WOMENS IMAGING REPORT ---
EXAM DESCRIPTION: BILAT SCREENING MAMMO W/CAD COMPLETED DATE/TIME: 10/11/2017 2:50 pm REASON FOR STUDY: ROUTINE SCREENING; Z12.31 Z12.31 ENCNTR SCREEN MAMMOGRAM FOR MALIGNANT NEOPLASM O F PATRICIA COMPARISON: 01/27/2016 TECHNIQUE: Standard craniocaudal and mediolateral oblique views of each breast recorded using Zignalsa l acquisition. LIMITATIONS: None. FINDINGS: No masses, calcifications or architectural distortion. No areas of suspicion. Read with the assistance of CAD. .[facility] - R2 Cenova Version 1.3 .[facility] - R2 Cenova Version 1.3 .[facility] - R2 Cenova Version 2.4 .[facility] [place] Cenova Version 2.4 .[facility] [place] - R2 Patient Services Technician Version 9.2 IMPRESSION: NORMAL MAMMOGRAM. BIRADS 1. BREAST DENSITY: b. There are scattered areas of fibroglandular density. BIRAD: 1 NEGATIVE RECOMMENDATION: ROUTINE SCREENING Please consider bilateral screening tomosynthesis in September 2018 COMMENT: The patient has been notified of the results by letter per SA requirements. Additional no tification policies are in place for contacting patient with suspicious or incomplete findings. Quality ID #[id number]: The [employer] recommends an annual screening mammogram for women aged 40 years or over. This facility utilizes a reminder system to ensure that all patients receive reminder letters, and/or direct phone calls for appointments. This includes reminders for routine scr eening mammograms, diagnostic mammograms, or other Breast Imaging Interventions when appropriate. Th is patient will be placed in the appropriate reminder system. The [employer] (ACR) has developed recommendations for screening MRI of the breast s in certain patient populations, to be used in conjunction with mammography. Breast MRI surveillanc e may be appropriate for women with more than 20% lifetime risk of developing breast cancer as deter mined by genetic testing, significant family history of the disease, or history of mantle radiation f or Hodgkins Disease. ACR Practice Guidelines 2008. TECHNICAL DOCUMENTATION: FINDING NUMBER: (1) ASSESSMENT: (1) JOB ID: [id number] [employer]- All Rights Reserved
== END ==
LOC: WI 13:07
PROVIDERS: ATTEND Family Medicine
DX: Z12.31 Encounter for screening mammogram for malignant neoplasm of breast (principal)
CPT/HCPCS: 77067

== ENCOUNTER → 2018-01-24 | Outpatient (CLI) | payer MEDICARE ==
--- NOTE | 2018-01-24 14:24 | RADIOLOGY REPORT (SQ) ---
EXAM DESCRIPTION: CT CHEST WITHOUT COMPLETED DATE/TIME: 01/24/2018 9:13 am REASON FOR STUDY: MALIGNANT NEOPLASM OF UPPER LOBE, LEFT BRONCHUS OR LUNG C34.12 MALIGNANT NEOPLASM OF UPPER LOBE, LEFT BRONCHUS OR CARMEL COMPARISON: 09/22/2017 and 11/15/2016. TECHNIQUE: CT scan performed of the chest without intravenous contrast. Images reviewed with lung, soft tissue and bone windows. Reconstructed coronal and sagittal MPR images reviewed. All images st ored on PACS. All CT scanners at this facility use dose modulation, iterative reconstruction, and/or weight based d osing when appropriate to reduce radiation dose to as low as reasonably achievable (ALARA). [facility]: Dose Right [facility]: CareDose [facility]: Dose Right [facility]: Teradose 4D [facility]: [employer] RADIATION DOSE: CT Rad equipment meets quality standard of care and radiation dose reduction techniq ues were employed. CTDIvol: 11.0 mGy. DLP: 419 mGy-cm. mGy. LIMITATIONS: No technical limitations. FINDINGS: LUNGS AND PLEURA: Stable surgical changes of left upper lobectomy. Stable 1.4 cm ground-g lass nodule in the posterior right upper lobe. No new nodules or masses. Mild scarring in the lung bases. No pleural effusion. HILAR AND MEDIASTINAL STRUCTURES: No identified masses or abnormal nodes. No obvious aneurysm. HEART AND VASCULAR STRUCTURES: No aneurysm. No pericardial effusion. UPPER ABDOMEN: No significant findings. Limited exam. THYROID AND OTHER SOFT TISSUES: No masses. No adenopathy. BONES: No significant finding. HARDWARE: Vascular access port. OTHER: No other significant findings. IMPRESSION: STABLE NONCONTRAST CT OF THE CHEST. STABLE 1.4 CM GROUND-GLASS NODULE IN THE RIGHT UPPE R LOBE. POST LEFT UPPER LOBECTOMY. NO NEW NODULES OR MASSES OR OTHER SIGNIFICANT CHANGE. TECHNICAL DOCUMENTATION: JOB ID: [id number] Quality ID # 436: Final reports with documentation of one or more dose reduction techniques (e.g., Au tomated exposure control, adjustment of the mA and/or kV according to patient size, use of iterative reconstruction technique) 2010 [employer]- All Rights Reserved Reading location - IP/workstation name: [facility]
== END ==
LOC: RAD 08:43
PROVIDERS: ATTEND Internal Medicine
DX: C34.12 Malignant neoplasm of upper lobe, left bronchus or lung (principal)
CPT/HCPCS: 71250

== ENCOUNTER → 2018-05-31 | Outpatient (CLI) | payer MEDICARE ==
--- NOTE | 2018-05-31 10:15 | RADIOLOGY REPORT (SQ) ---
EXAM DESCRIPTION: CT CHEST WITHOUT COMPLETED DATE/TIME: 05/31/2018 9:18 am REASON FOR STUDY: LUNG CA C34.12 MALIGNANT NEOPLASM OF UPPER LOBE, LEFT BRONCHUS OR CARMEL COMPARISON: PET-CT 11/28/2016 CT chest 11/15/2016, 12/15/2016, 09/22/2017, 01/24/2018 TECHNIQUE: CT scan performed of the chest without intravenous contrast. Images reviewed with lung, soft tissue and bone windows. Reconstructed coronal and sagittal MPR images reviewed. All images st ored on PACS. All CT scanners at this facility use dose modulation, iterative reconstruction, and/or weight based d osing when appropriate to reduce radiation dose to as low as reasonably achievable (ALARA). [facility]: Dose Right [facility]: CareDose [facility]: Dose Right [facility]: Teradose 4D [facility]: [employer] RADIATION DOSE: CT Rad equipment meets quality standard of care and radiation dose reduction techniq ues were employed. CTDIvol: 9.7 mGy. DLP: 356 mGy-cm. mGy. LIMITATIONS: No technical limitations. FINDINGS: LUNGS AND PLEURA: Old left upper lobectomy. Stable volume loss in the left hemithorax wit h old healed left posterior rib fractures and minimal left posterior pleural thickening. No pleural effusion. No pneumothorax. No recurrent left lung mass. Right lung is hyperinflated and clear. No right pleural effusion or pneumothorax. HILAR AND MEDIASTINAL STRUCTURES: Old left upper lobectomy. No adenopathy. No masses. HEART AND VASCULAR STRUCTURES: No aneurysm. No pericardial effusion. Diffuse coronary artery calcif ication UPPER ABDOMEN: Post cholecystectomy THYROID AND OTHER SOFT TISSUES: No masses. No adenopathy. BONES: No significant finding. HARDWARE: Right jugular central line tip superior vena cava OTHER: No other significant findings. IMPRESSION: Post left upper lobectomy. No CT evidence of recurrent malignancy over the chest TECHNICAL DOCUMENTATION: JOB ID: [id number] Quality ID # 436: Final reports with documentation of one or more dose reduction techniques (e.g., Au tomated exposure control, adjustment of the mA and/or kV according to patient size, use of iterative reconstruction technique) 2010 [employer]- All Rights Reserved Reading location - IP/workstation name: [facility]-[email or web address]
== END ==
LOC: RAD 09:04
PROVIDERS: ATTEND Internal Medicine
DX: C34.12 Malignant neoplasm of upper lobe, left bronchus or lung (principal)
CPT/HCPCS: 71250

== ENCOUNTER → 2018-10-03 | Outpatient (CLI) | payer MEDICARE ==
--- NOTE | 2018-10-03 10:00 | RADIOLOGY REPORT (SQ) ---
EXAM DESCRIPTION: CT CHEST WITHOUT COMPLETED DATE/TIME: 10/03/2018 8:22 am REASON FOR STUDY: C34.12 MALIGNANT NEOPLASM OF UPPER LOBE, LEFT BRONCHUS OR LUNG C34.12 MALIGNANT N EOPLASM OF UPPER LOBE, LEFT BRONCHUS OR CARMEL COMPARISON: 05/31/2018 TECHNIQUE: CT scan performed of the chest without intravenous contrast. Images reviewed with lung, soft tissue and bone windows. Reconstructed coronal and sagittal MPR images reviewed. All images st ored on PACS. All CT scanners at this facility use dose modulation, iterative reconstruction, and/or weight based d osing when appropriate to reduce radiation dose to as low as reasonably achievable (ALARA). [facility]: Dose Right [facility]: CareDose [facility]: Dose Right [facility]: Teradose 4D [facility]: [employer] RADIATION DOSE: CT Rad equipment meets quality standard of care and radiation dose reduction techniq ues were employed. CTDIvol: 9.9 mGy. DLP: 369 mGy-cm. mGy. LIMITATIONS: No technical limitations. FINDINGS: LUNGS AND PLEURA: Old left upper lobectomy stable left pleural thickening. Stable bandlik e scarring in the right lung, which is hyperinflated. No effusions. HILAR AND MEDIASTINAL STRUCTURES: No identified masses or abnormal nodes. No obvious aneurysm. HEART AND VASCULAR STRUCTURES: No aneurysm. No pericardial effusion. UPPER ABDOMEN: No significant findings. Limited exam. THYROID AND OTHER SOFT TISSUES: No masses. No adenopathy. BONES: Nothing acute. HARDWARE: None in the chest. OTHER: Right-sided port tip in the SVC. IMPRESSION: No evidence of local recurrence or metastatic disease. TECHNICAL DOCUMENTATION: JOB ID: [id number] Quality ID # [id number]: Final reports with documentation of one or more dose reduction techniques (e.g., Au tomated exposure control, adjustment of the mA and/or kV according to patient size, use of iterative reconstruction technique) 2010 [employer]- All Rights Reserved Reading location - IP/workstation name: [email or web address]
== END ==
LOC: RAD 08:04
PROVIDERS: ATTEND Internal Medicine
DX: C34.12 Malignant neoplasm of upper lobe, left bronchus or lung (principal)
CPT/HCPCS: 71250

== ENCOUNTER → 2019-04-03 | Outpatient (CLI) | payer MEDICARE ==
--- NOTE | 2019-04-03 09:52 | RADIOLOGY REPORT (SQ) ---
EXAM DESCRIPTION: CT CHEST WITHOUT COMPLETED DATE/TIME: 04/03/2019 8:43 am REASON FOR STUDY: (C34.12)MALIGNANT NEOPLASM OF UPPER LOBE, LEFT BRONCHUS OR LUNG C34.12 MALIGNANT NEOPLASM OF UPPER LOBE, LEFT BRONCHUS OR CARMEL COMPARISON: 10/03/2018 TECHNIQUE: CT scan performed of the chest without intravenous contrast. Images reviewed with lung, soft tissue and bone windows. Reconstructed coronal and sagittal MPR images reviewed. All images st ored on PACS. All CT scanners at this facility use dose modulation, iterative reconstruction, and/or weight based d osing when appropriate to reduce radiation dose to as low as reasonably achievable (ALARA). [facility]: Dose Right [facility]: CareDose [facility]: Dose Right [facility]: Teradose 4D [facility]: [employer] RADIATION DOSE: CT Rad equipment meets quality standard of care and radiation dose reduction techniq ues were employed. CTDIvol: 11.2 mGy. DLP: 409 mGy-cm. mGy. LIMITATIONS: No technical limitations. FINDINGS: LUNGS AND PLEURA: Unchanged postsurgical changes within the left hemithorax from left uppe r lobectomy. No new focal nodules or masses. No new airspace disease. No pleural effusion or pneum othorax. Unchanged pleural thickening along the left posterior thoracic wall, likely postsurgical. HILAR AND MEDIASTINAL STRUCTURES: Unchanged leftward mediastinal shift from the volume loss. No new adenopathy. HEART AND VASCULAR STRUCTURES: Scattered coronary atherosclerosis. No pericardial effusion. Normal heart size. UPPER ABDOMEN: Prior cholecystectomy. THYROID AND OTHER SOFT TISSUES: No masses. No adenopathy. BONES: Subacute left posterior 9th - 11th rib fractures. HARDWARE: Right internal jugular central venous catheter tip [place] [facility] [place]. OTHER: No other significant findings. IMPRESSION: Stable postsurgical changes within the left hemithorax without evidence of new intrathor acic disease. Subacute left posterior 9th through 11th rib fractures. TECHNICAL DOCUMENTATION: JOB ID: [id number] Quality ID # [id number]: Final reports with documentation of one or more dose reduction techniques (e.g., Au tomated exposure control, adjustment of the mA and/or kV according to patient size, use of iterative reconstruction technique) 2010 [employer]- All Rights Reserved Reading location - IP/workstation name: [email or web address]
== END ==
LOC: RAD 08:33
PROVIDERS: ATTEND Internal Medicine
DX: C34.12 Malignant neoplasm of upper lobe, left bronchus or lung (principal); S22.42XD Multiple fractures of ribs, left side, subsequent encounter for fracture with routine healing; X58.XXXD Exposure to other specified factors, subsequent encounter
CPT/HCPCS: 71250